=== PATIENT | female | born 1930 | race Caucasian/White ===

== ENCOUNTER → 2017-09-13 | Outpatient (CLI) | payer MEDICARE, BC ==
[~2017-09-13] MED LIST: AMMO12CR10 TOP; ASPI81CH CHEW; BIOTCAP PO; CALC500T37 PO; DIAZ10 PO; DIAZ5 PO; FOLI1 PO; FURO20 PO; IRBE1TAB37 PO; KCL20 PO; MULT-65 PO; OCUVTAB4 PO; OLME1TAB13 PO; PROT40TA PO; PURE0.3D2 OU; SYMB80AE INH; THIA100T PO; [UNRECOGNIZED DRUG - OTHER]
[2017-09-13 14:51] LABS: AUTOMATED NEUTROPHIL # 3.9 TH/MM3 (1.8-7.7); BASOPHIL # 0.2 TH/MM3 (0-0.2); BASOPHIL % 2.3 % (0.0-2.0); EOSINOPHIL # 0.6 TH/MM3 (0-0.4); EOSINOPHIL % 8.1 % (0.0-4.0); HEMATOCRIT 31.5 % (35.0-46.0); LYMPH % 26.8 % (9.0-44.0); LYMPHOCYTE # 1.9 TH/MM3 (1.0-4.8); MEAN CELL VOLUME 81.3 FL (80.0-100.0); MEAN CORPUSCULAR HEMOGLOBIN 25.8 PG (27.0-34.0); MEAN CORPUSCULAR HGB CONC 31.7 % (32.0-36.0); MONO % 6.4 % (0.0-8.0); NEUT % 56.4 % (16.0-70.0); PLATELET COUNT 170 TH/MM3 (150-450); RED BLOOD COUNT 3.88 MIL/MM3 (4.00-5.30); RED CELL DISTRIBUTION WIDTH 24.5 % (11.6-17.2)
[2017-09-13 14:54] LABS: HEMO FLAGS AUTO DIFF
[2017-09-13 14:58] LABS: APTT (PATIENT) 29.4 SEC (24.3-30.1); PROTHROMBIN TIME - PATIENT 11.1 SEC (9.8-11.6)
[2017-09-13 15:08] LABS: ALT (GPT) 15 U/L (10-53); ANION GAP 6 MEQ/L (5-15); AST (GOT) 22 U/L (15-37); BICARBONATE 30.5 MEQ/L (21.0-32.0); BLOOD UREA NITROGEN 15 MG/DL (7-18); CHLORIDE 100 MEQ/L (98-107); GLOMERULAR FILTRATION RATE 85 ML/MIN (>89); GLUCOSE,FASTING 95 MG/DL (74-99); POTASSIUM 4.3 MEQ/L (3.5-5.1); SODIUM (NA) 136 MEQ/L (136-145)
[2017-09-13 15:11] LABS: ALKALINE PHOSPHATASE 63 U/L (45-117); TOTAL BILIRUBIN ADULT 0.5 MG/DL (0.2-1.0)
[2017-09-13 15:24] LABS: SCAN/DIFF AUTO DIFF CONFIRMED
[2017-09-13 15:25] LABS: PLATELET ESTIMATE SMEAR NORMAL (NORMAL); PLATELET MORPHOLOGY NORMAL (NORMAL); TARGET CELLS 1+ (NORMAL)
[2017-09-13 15:28] LABS: TOXIC GRANULATION 1+ (NORMAL)
== END ==
LOC: CPRE 14:08
PROVIDERS: ATTEND Obstetrics & Gynecology Gynecologic Oncology
DX: Z01.810 Encounter for preprocedural cardiovascular examination (principal); Z01.811 Encounter for preprocedural respiratory examination; Z01.812 Encounter for preprocedural laboratory examination; C54.1 Malignant neoplasm of endometrium
CPT/HCPCS: 36415; 80053; 85025; 85610; 85730

== ENCOUNTER 2017-09-24 05:14 | Inpatient (IN) | payer MEDICARE, BC ==
[~2017-09-24] VITALS: Ht 162.6 cm; Wt 107.0 kg
[2017-09-24] VITALS (10 sets, daily range): BP systolic 130–144; BP diastolic 62–66; PULSE 80–97; RESP 19–27; TEMP 97.3–97.4; O2SAT 94–99
[~2017-09-24 05:14] MED LIST changes: -AMMO12CR10 TOP; -DIAZ10 PO; -DIAZ5 PO; -FOLI1 PO; -FURO20 PO; -IRBE1TAB37 PO; -KCL20 PO; -PROT40TA PO; -PURE0.3D2 OU; -SYMB80AE INH; -THIA100T PO; -[UNRECOGNIZED DRUG - OTHER]
[2017-09-24] MEDS ORDERED: POVIDONE IODINE 5% (ANTISEPSIS KIT) 4 APPLICATIONS EACH NARE PRN ×2 (05:45)
[2017-09-24] MEDS ORDERED: ceFAZolin 2 GM PREMIX 50 ML IV SCH ×2 (05:45)
[2017-09-24] MEDS ORDERED: METOPROLOL TARTRATE 25 MG TAB PO PRN ×2 (05:45)
[2017-09-24] MEDS ORDERED: INSULIN HUMAN REGULAR 1,000 UNITS/10 ML VIAL SQ PRN ×2 (05:45)
[2017-09-24] MEDS ORDERED: CHLORHEXIDINE GLUCONATE 2 % 1 PACK (2 CLOTHS) TOPICAL PRN ×2 (05:45)
[2017-09-24] MEDS ORDERED: HEPARIN SODIUM - SQ 10,000 UNITS/ML VIAL SQ PRN ×2 (05:45)
[2017-09-24] MEDS ORDERED: SODIUM CHLORID 0.9% 500 ML IV PRN ×2 (05:45)
[2017-09-24] MEDS ORDERED: LACTATED RINGER'S 1000 ML IV PRN ×2 (05:45)
[2017-09-24] MEDS ORDERED: SODIUM CHLORIDE FLUSH PRN IV FLUSH ×2 (05:45)
[2017-09-24] MEDS ORDERED: DIAZ10 PO ×2 (06:01)
[2017-09-24] MEDS ORDERED: SUGAMMADEX SODIUM 200 MG/2 ML VIAL IV PUSH ONE ×4 (06:45→15:10)
[2017-09-24] MEDS ORDERED: HYDROmorphone HCL PF 2 MG/ML VIAL ONE ×2 (06:45)
[2017-09-24] MEDS ORDERED: LIDOCAINE 1%/EPINEPHrine 1:100,000 SOLN 20 ML VIAL ONE ×2 (07:31)
[2017-09-24] MEDS ORDERED: methylPREDNISolone SOD SUCC 125 MG/2 ML VIAL ONE ×2 (07:37)
[2017-09-24] MEDS: SODIUM CHLORIDE FLUSH BID IV FLUSH SCH ×4 (09:00→21:00)
[2017-09-24] MEDS ORDERED: ACETAMINOPHEN 1000 MG/100 ML 100 ML IV ONE ×2 (10:01)
[2017-09-24] MEDS ORDERED: ceFAZolin INJ 1,000 MG VIAL IV ONE ×2 (11:11)
[2017-09-24] MEDS ORDERED: diphenhydrAMINE HCL 25 MG CAP PO PRN ×2 (12:00)
[2017-09-24] MEDS ORDERED: SODIUM CHLORIDE 0.9% FLUSH 10 ML FLUSH IV FLUSH PRN ×4 (12:00)
[2017-09-24] MEDS ORDERED: ONDANSETRON HCL 4 MG/2 ML VIAL IVP PRN ×2 (12:00)
[2017-09-24] MEDS ORDERED: oxyCODONE/ACETAMINOPHEN 5 MG/325 MG TAB PO PRN ×4 (12:00)
[2017-09-24] MEDS: D5-1/2 NS + KCL 20 MEQ INJ 1,000 ML IV SCH ×4 (12:30→22:09)
[2017-09-24] MEDS ORDERED: *RESP: ALBUTEROL 2.5 MG/3 ML NEB (PRN) PERIprocedural Use ONLY NEB ONE ×2 (15:45)
--- NOTE | 2017-09-24 17:09 | RADRPT ---
EXAM DATE/TIME: 09/24/2017 16:50 [facility] COMPARISON: No previous studies available for comparison. INDICATIONS : Short of breath. MEDICAL HISTORY : None. SURGICAL HISTORY : None. ENCOUNTER: Initial ACUITY: 1 day PAIN SCORE: 0/10 LOCATION: Bilateral chest FINDINGS: The heart is enlarged. Moderate interstitial changes are present in both lungs. Congestive failure would be consideration. Premature process to be less likely. There is no pneumothorax or pleural ef fusion. CONCLUSION: Probable congestive failure. Miky Newsome MD FACR on September 24, 2017 at 17:07 Board Certified Radiologist. This report was verified electronically.
[2017-09-24] MEDS ORDERED: methylPREDNISolone SOD SUCC 125 MG/2 ML VIAL IV PUSH ONE ×2 (17:30)
--- NOTE | 2017-09-24 17:30 | PD.CONS ---
[facility] Service Critical Care Medicine Consult Requested By Dr. 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 Posadas on 09/24, tolerated procedure well was subsequently extubated however has been having borderline O2 sats following extubation in PACU. She was placed on a Ventimask 50% O2 with which her O2 sats borderline around 88%. Critical care consult was requested by Dr. Posadas for acute respiratory failure. Subsequently patient dropped O2 sats to the 70s and was placed on BiPAP in PACU. ABG had been drawn just prior to initiating BiPAP. I evaluated the patient in PACU while she was on BiPAP. Her O2 sats had improved to 97% on settings +10/+5 and FiO2 40%. Patient appeared comfortable on BiPAP and was not in any acute distress. She knew she was in [facility] and was following commands appropriately. She denied any chest pain or nausea. She denied any pain. Review of Systems ROS Limitations: Clinical Condition Past Family Social History Allergies: Coded Allergies: betamethasone (Unverified Allergy, Unknown, UNKNOWN REACTION, 09/24/17) Uncoded Allergies: LANOLIN (Allergy, Unknown, BLOTCHES, 11/10/03) Past Medical History Vaginal Bleeding Chronic Obstructive Pulmonary Disease (O2 usage around the clock) Hemorrhoids Hypertension Cancer in 2017 Past Surgical History PAST SURGICAL HISTORY: Tubal ligation Breast implant in 1993 Reported Medications Aspirin 81 mg (of 81 mg) Tablet Oral (held 2 weeks prior to surgery) Benicar Tablet Oral Calcium Tablet Oral Multi Vitamin Tablet Oral Family History The family history is unremarkable. Social History Ms. Strickland is . Ms. Strickland quit smoking 33 years ago. She quit drinking 3 years ago. History of EtOH abuse. Physical Exam Vital Signs Vital Signs Date Time Temp Pulse Resp B/P (MAP) Pulse Ox O2 Delivery O2 Flow Rate FiO2 09/24/17 05:55 97.2 94 18 109/54 (72) 96 Physical Exam HEENT/Neuro: Pallor present, No icterus, tongue moist, JANELL, Awake alert oriented 3, on BiPAP with full facemask nonfocal grossly, moving all 4 extremities Neck: No JVD Chest/pulmonary: On BiPAP with full facemask, air entry decreased bilaterally at bases, no wheezing or crackles. Occasional rhonchi Cardiovascular: S1-S2 regular no gallop or murmur GI/abdomen: Soft, nontender, bowel sounds sluggish. Steri-Strips noted over lap port sites 3 Extremities: Warm bilaterally, trace edema Laboratory Postop labs pending. Imaging Well-expanded lung mendez, prominent pulmonary vasculature. Assessment and Plan Assessment and Plan 86-year-old female with: Endometrial cancer status post robot-assisted laparoscopic hysterectomy and bilateral salpingo-oophorectomy Acute respiratory failure requiring BiPAP Suspect COPD exacerbation Advanced COPD on home oxygen Morbid obesity Plan: Neuro: Pain medications as ordered per Dr. Posadas Cardiovascular: IV hydration, watch for hypotension. Check BNP, if elevated will obtain 2-D echo in a.m. Pulmonary: Started Solu-Medrol 125 mg IV stat and then 80 mg IV every 12 hourly. Duo nebs every 4 hourly and every 2 hourly when necessary. Continue BiPAP. If respiratory status worsens despite BiPAP, may require endotracheal intubation. Follow up ABG GI/liver: Nothing by mouth to rest I status improves. Advance PO when resp status permits per postop orders by Dr. Posadas. Renal/: Strict intake output, monitor and replete elect lites, follow BUN creatinine. IV hydration. Endocrine: Watch for hyperglycemia, SSI for glycemic control as needed. Heme: Follow CBC. Transfuse to keep hemoglobin above 8 g percent. ID: Perioperative antibiotic prophylaxis per Dr. Posadas. Prophylaxis: SCDs. Subcutaneous heparin when cleared by Dr. Posadas Condition critical. Respiratory failure requiring BiPAP postoperatively for advanced COPD. Time spent on critical care excluding procedures 60 minutes Mina Waller MD Sep 24, 2017 17:30
[2017-09-24] MEDS ORDERED: RESP: ALBUTEROL 2.5 MG/IPRATROPIUM 0.5 MG NEB (PRN) NEB ×2 (17:45)
[2017-09-24 18:00] LABS: AUTOMATED NEUTROPHIL # 10.3 TH/MM3 (1.8-7.7); BASOPHIL % 0.2 % (0.0-2.0); HEMATOCRIT 28.5 % (35.0-46.0); LYMPH % 5.2 % (9.0-44.0); LYMPHOCYTE # 0.6 TH/MM3 (1.0-4.8); MEAN CELL VOLUME 82.1 FL (80.0-100.0); MEAN CORPUSCULAR HEMOGLOBIN 25.9 PG (27.0-34.0); MEAN CORPUSCULAR HGB CONC 31.5 % (32.0-36.0); MEAN PLATELET VOLUME 8.9 FL (7.0-11.0); MONO % 1.5 % (0.0-8.0); MONOCYTE # 0.2 TH/MM3 (0-0.9); NEUT % 93.1 % (16.0-70.0); PLATELET COUNT 150 TH/MM3 (150-450); RED BLOOD COUNT 3.48 MIL/MM3 (4.00-5.30); RED CELL DISTRIBUTION WIDTH 24.6 % (11.6-17.2); WHITE BLOOD COUNT 11.1 TH/MM3 (4.0-11.0)
[2017-09-24 18:24] LABS: ALBUMIN 2.9 GM/DL (3.4-5.0); AST (GOT) 21 U/L (15-37); BICARBONATE 26.7 MEQ/L (21.0-32.0); BLOOD UREA NITROGEN 17 MG/DL (7-18); CALCIUM 8.1 MG/DL (8.5-10.1); CHLORIDE 102 MEQ/L (98-107); CREATININE 0.92 MG/DL (0.50-1.00); GLOMERULAR FILTRATION RATE 58 ML/MIN (>89); GLUCOSE,RANDOM 216 MG/DL (74-106); SODIUM (NA) 136 MEQ/L (136-145)
[2017-09-24 18:25] LABS: ALT (GPT) 14 U/L (10-53)
[2017-09-24 18:27] LABS: ALKALINE PHOSPHATASE 51 U/L (45-117); TOTAL BILIRUBIN ADULT 0.2 MG/DL (0.2-1.0); TOTAL PROTEIN 6.5 GM/DL (6.4-8.2)
[2017-09-24] MEDS: KETOROLAC TROMETHAMINE 30 MG/ML (IVP) VIAL IVP SCH ×2 (19:58)
[2017-09-24] MEDS: RESP: ALBUTEROL 2.5 MG/IPRATROPIUM 0.5 MG NEB (SCH) NEB ×2 (20:00)
[2017-09-24] MEDS ORDERED: SODIUM CHLORIDE 0.9% FLUSH 10 ML FLUSH IV FLUSH SCH ×4 (21:00)
[2017-09-24] MEDS: methylPREDNISolone SOD SUCC 125 MG/2 ML VIAL IV PUSH SCH ×2 (22:09)
[2017-09-25] VITALS (15 sets, daily range): BP systolic 93–121; BP diastolic 44–79; PULSE 78–115; RESP 13–33; TEMP 97–98.4; O2SAT 89–98
[2017-09-25] MEDS: RESP: ALBUTEROL 2.5 MG/IPRATROPIUM 0.5 MG NEB (SCH) NEB ×12 (00:12→20:17)
[2017-09-25] MEDS: KETOROLAC TROMETHAMINE 30 MG/ML (IVP) VIAL IVP SCH ×4 (00:20→08:46)
[2017-09-25 04:26] LABS: AUTOMATED NEUTROPHIL # 11.2 TH/MM3 (1.8-7.7); BASOPHIL % 0.1 % (0.0-2.0); HEMATOCRIT 26.8 % (35.0-46.0); HEMOGLOBIN 8.4 GM/DL (11.6-15.3); LYMPH % 5.1 % (9.0-44.0); LYMPHOCYTE # 0.6 TH/MM3 (1.0-4.8); MEAN CELL VOLUME 81.3 FL (80.0-100.0); MEAN CORPUSCULAR HEMOGLOBIN 25.3 PG (27.0-34.0); MEAN CORPUSCULAR HGB CONC 31.2 % (32.0-36.0); MEAN PLATELET VOLUME 8.5 FL (7.0-11.0); MONO % 1.1 % (0.0-8.0); MONOCYTE # 0.1 TH/MM3 (0-0.9); NEUT % 93.7 % (16.0-70.0); PLATELET COUNT 134 TH/MM3 (150-450); RED CELL DISTRIBUTION WIDTH 25.3 % (11.6-17.2); WHITE BLOOD COUNT 11.9 TH/MM3 (4.0-11.0)
[2017-09-25 04:50] LABS: BICARBONATE 26.5 MEQ/L (21.0-32.0); CALCIUM 7.9 MG/DL (8.5-10.1); CREATININE 0.89 MG/DL (0.50-1.00)
[2017-09-25 07:07] LABS: BANDS 13 % (0-6); LYMPHOCYTES 3 % (9-44); MONOCYTES 3 % (0-8); NEUTROPHIL # MANUAL DIFF 11.2 TH/MM3 (1.8-7.7); POLYS (SEG NEUTROPHILS) 81 % (16-70); TOXIC GRANULATION 1+ (NORMAL)
[2017-09-25] MEDS: D5-1/2 NS + KCL 20 MEQ INJ 1,000 ML IV SCH ×4 (08:46→17:41)
[2017-09-25] MEDS: SODIUM CHLORIDE FLUSH BID IV FLUSH SCH ×4 (08:46→20:31)
[2017-09-25] MEDS: LOSARTAN 50 MG TAB PO SCH ×2 (08:47)
[2017-09-25] MEDS: methylPREDNISolone SOD SUCC 125 MG/2 ML VIAL IV PUSH SCH ×2 (08:47)
--- NOTE | 2017-09-25 09:10 | RADRPT ---
EXAM DATE/TIME: 09/25/2017 08:24 [place] Corrected on: September 25, 2017; Updated report time [facility] COMPARISON: CHEST SINGLE AP, September 24, 2017, 16:50. INDICATIONS : Shortness of breath. MEDICAL HISTORY : None. SURGICAL HISTORY : None. ENCOUNTER: Subsequent ACUITY: 2 days PAIN SCORE: 0/10 LOCATION: Bilateral chest FINDINGS: Stable cardiomegaly. There is some indistinctness of the central bronchopulmonary markings, slightly improved from yesterday's scan. There is persistent blunting of both costophrenic angles are acoust ical small bilateral pleural effusions. CONCLUSION: Congestive heart failure slightly improved. Persistent small bilateral pleural effusions. Jim Horta MD on September 25, 2017 at 9:08 Board Certified Radiologist. This report was verified electronically.
--- NOTE | 2017-09-25 09:13 | HHI.PR ---
Subjective . no c/o this morning. reports no pain Objective . afeb no on nc oxygen 5l/min with sats > 92 hgb 8.4 (10 pre-op) renal function good, but uop ~ 25ml/hr A& O x3 NAD abdomen soft, nt, clean & dry Assessment/Plan . pos#1 some improvement in oxygenation, overall status most grateful for excellent ISC care oob to chair, spirometry PT consult Case management consult Continue ISC care for another 24 hours Liane Posadas MD Sep 25, 2017 09:13
--- NOTE | 2017-09-25 09:48 | HHI.CCPN ---
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 Posadsa on 09/24, tolerated procedure well was subsequently extubated however has been having borderline O2 sats following extubation in PACU. She was placed on a Ventimask 50% O2 with which her O2 sats borderline around 88%. Critical care consult was requested by Dr. Posadas for acute respiratory failure. Subsequently patient dropped O2 sats to the 70s and was placed on BiPAP in PACU. ABG had been drawn just prior to initiating BiPAP. I evaluated the patient in PACU while she was on BiPAP. Her O2 sats had improved to 97% on settings +10/+5 and FiO2 40%. Patient appeared comfortable on BiPAP and was not in any acute distress. She knew she was in [facility] and was following commands appropriately. She denied any chest pain or nausea. She denied any pain. 09/25: Breathing more comfortably today. On 5 L nasal cannula. Off BiPAP since 9 PM. Awake alert oriented 3. Denies any pain. Minimal vagina bleeding per shift production associate RN. Objective Vital Signs Date Time Temp Pulse Resp B/P (MAP) Pulse Ox O2 Delivery O2 Flow Rate FiO2 09/25/17 08:00 98.1 93 21 107/47 (67) 93 09/25/17 07:57 Nasal Cannula 5.00 09/24/17 20:01 40 Intake and Output 09/25/17 09/25/17 09/26/17 08:00 16:00 00:00 Intake Total 50 ml Output Total 200 ml Balance -150 ml Result Diagram: 09/25/17 0414 09/25/17 0414 Other Results Laboratory Tests Test 09/24/17 17:10 Blood Gas Puncture Site ART LINE Blood Gas Patient Temperature 98.6 Blood Gas HCO3 25 mmol/L (22-26) Blood Gas Base Excess -0.3 mmol/L (-2-2) Blood Gas Oxygen Saturation 96 % (90-100) Arterial Blood pH 7.31 (7.380-7.420) Arterial Blood Partial Pressure CO2 51 mmHg (38-42) Arterial Blood Partial Pressure O2 119 mmHg (61-120) Arterial Blood Oxygen Content 12.5 Vol % (12.0-20.0) Arterial Blood Carboxyhemoglobin 1.4 % (0-4) Arterial Blood Methemoglobin 1.1 % (0-2) Blood Gas Hemoglobin 9.2 G/DL (12.0-16.0) Oxygen Delivery Device Non-Rebreathing Mask Blood Gas Liter Flow 15 L/M Imaging Well-expanded lung mendez, prominent pulmonary vasculature. Objective Remarks HEENT/Neuro: Pallor present, No icterus, tongue moist, JANELL, Awake alert oriented 3, nonfocal grossly, moving all 4 extremities Neck: No JVD Chest/pulmonary: On nasal cannula 5 L/m, air entry decreased bilaterally at bases, no wheezing or crackles. Occasional rhonchi Cardiovascular: S1-S2 regular no gallop or murmur GI/abdomen: Soft, nontender, bowel sounds sluggish. Steri-Strips noted over lap port sites 3 Extremities: Warm bilaterally, trace edema A/P Assessment and Plan 86-year-old female with: Endometrial cancer status post robot-assisted laparoscopic hysterectomy and bilateral salpingo-oophorectomy Acute respiratory failure requiring BiPAP Suspect COPD exacerbation Advanced COPD on home oxygen Morbid obesity Plan: Neuro: Pain medications as ordered per Dr. Posadas. Follow neuro status Cardiovascular: IV hydration, watch for hypotension. Elevated BNP noted, ordered 2-D echo to assess LV/RV function. Lasix 20 mg IV 1 dose in view of question of pulmonary vascular congestion with bilateral effusions on chest x- ray Pulmonary: Started Solu-Medrol 125 mg IV in PACU and then 80 mg IV every 12 hourly. Duo nebs every 4 hourly and every 2 hourly when necessary. Off BiPAP on nasal cannula currently. GI/liver: Advance PO per postop orders by Dr. Posadas. Renal/: Strict intake output, monitor and replete electrolites, follow BUN creatinine. Receiving IV fluids. Lasix 20 mg IV 1 dose ordered in view of elevated BNP Endocrine: Watch for hyperglycemia, SSI for glycemic control as needed. Heme: Follow CBC. Transfuse to keep hemoglobin above 8 g percent. ID: Perioperative antibiotic prophylaxis per Dr. Posadas. Prophylaxis: SCDs. Subcutaneous heparin when cleared by Mina Oliveira MD Sep 25, 2017 09:47
[2017-09-25] MEDS ORDERED: FUROSEMIDE 20 MG/2 ML VIAL IV PUSH ONE ×2 (10:15)
--- NOTE | 2017-09-25 16:00 | ECHRPT ---
Indication: ASSESS LV/RV FUNCTION CONCLUSIONS Normal left ventricular size. Wall thickness is normal. The left ventricular systolic function is hyperdynamic with an estimated ejection fraction in the ra nge of 65- 70%. Mitral annular calcification is present. There is mild tricuspid valve regurgitation. The estimated pulmonary arterial pressure is 45.3 mmHg. BP: 107 / 47 HR: Rhythm: Sinus MEASUREMENTS (Male / Female) Normal Values Technical Quality:Fair 2D ECHO LV Diastolic Diameter PLAX 5.4 cm 4.2 - 5.9 / 3.9 - 5.3 cm LV Systolic Diameter PLAX 3.8 cm IVS Diastolic Thickness 0.7 cm 0.6 - 1.0 / 0.6 - 0.9 cm LVPW Diastolic Thickness 0.8 cm 0.6 - 1.0 / 0.6 - 0.9 cm LV Relative Wall Thickness 0.3 LVOT Diameter 1.9 cm Aortic Root Diameter 2.3 cm LA Systolic Diameter LX 3.8 cm 3.0 - 4.0 / 2.7 - 3.8 cm M-MODE AV Cusp Separation MM 2.1 cm DOPPLER AV Peak Velocity 176.0 cm/s AV Peak Gradient 12.4 mmHg AV Mean Gradient 7.0 mmHg AV Velocity Time Integral 28.8 cm LVOT Peak Velocity 104.0 cm/s LVOT Peak Gradient 4.3 mmHg LVOT Velocity Time Integral 19.5 cm AV Area Cont Eq vti 1.9 cm AV Area Cont Eq pk 1.7 cm Mitral E Point Velocity 95.8 cm/s Mitral A Point Velocity 121.0 cm/s Mitral E to A Ratio 0.8 LV E' Lateral Velocity 9.1 cm/s Mitral E to LV E' Lateral Ratio 10.6 LV E' Septal Velocity 9.4 cm/s Mitral E to LV E' Septal Ratio 10.2 TR Peak Velocity 297.0 cm/s TR Peak Gradient 35.3 mmHg Right Atrial Pressure 10.0 mmHg Pulmonary Artery Systolic Pressu 45.3 mmHg Right Ventricular Systolic Press 45.3 mmHg PV Peak Velocity 64.7 cm/s PV Peak Gradient 1.7 mmHg FINDINGS LEFT VENTRICLE Normal left ventricular size. Wall thickness is normal. The left ventricular systolic function is hyperdynamic with an estimated ejection fraction in the ra nge of 65- 70%. RIGHT VENTRICLE Normal right ventricular size and systolic function. LEFT ATRIUM The left atrial size is normal. RIGHT ATRIUM The right atrial size is normal. ATRIAL SEPTUM Normal atrial septal thickness without atrial level shunting by limited color doppler interrogation. AORTA The aortic root and proximal ascending aorta are normal in size on limited imaging. MITRAL VALVE Mitral annular calcification is present. AORTIC VALVE Trileaflet aortic valve. No aortic valve stenosis or regurgitation. TRICUSPID VALVE There is mild tricuspid valve regurgitation. The estimated pulmonary arterial pressure is 45.3 mmHg. PULMONARY VALVE No pulmonary valve regurgitation or stenosis. VESSELS The inferior vena cava is normal in size. PERICARDIUM No pericardial effusion. Idalmis Waddell MD, FACC (Electronically Signed) Final Date:25 September 2017 15:59
[2017-09-25] MEDS: methylPREDNISolone SOD SUCC 40 MG/1 ML VIAL IV PUSH SCH ×2 (20:30)
[2017-09-26] VITALS (12 sets, daily range): BP systolic 129–148; BP diastolic 47–72; PULSE 91–114; RESP 10–39; TEMP 97.7–99.2; O2SAT 88–99
[2017-09-26] MEDS: RESP: ALBUTEROL 2.5 MG/IPRATROPIUM 0.5 MG NEB (SCH) NEB ×14 (01:05→23:28)
[2017-09-26] MEDS: D5-1/2 NS + KCL 20 MEQ INJ 1,000 ML IV SCH ×2 (04:01)
[2017-09-26 05:23] LABS: AUTOMATED NEUTROPHIL # 12.5 TH/MM3 (1.8-7.7); BASOPHIL % 0.2 % (0.0-2.0); LYMPH % 3.9 % (9.0-44.0); LYMPHOCYTE # 0.5 TH/MM3 (1.0-4.8); MEAN CELL VOLUME 81.9 FL (80.0-100.0); MEAN CORPUSCULAR HEMOGLOBIN 26.1 PG (27.0-34.0); MEAN CORPUSCULAR HGB CONC 31.8 % (32.0-36.0); MEAN PLATELET VOLUME 9.1 FL (7.0-11.0); MONO % 2.4 % (0.0-8.0); MONOCYTE # 0.3 TH/MM3 (0-0.9); NEUT % 93.5 % (16.0-70.0); PLATELET COUNT 118 TH/MM3 (150-450); RED BLOOD COUNT 3.05 MIL/MM3 (4.00-5.30); WHITE BLOOD COUNT 13.3 TH/MM3 (4.0-11.0)
[2017-09-26 06:01] LABS: BICARBONATE 25.9 MEQ/L (21.0-32.0); CALCIUM 7.7 MG/DL (8.5-10.1); CREATININE 0.74 MG/DL (0.50-1.00)
[2017-09-26 06:48] LABS: BANDS 8 % (0-6); CORRECTED NUCLEATED RBC 1 /100 WBC (0-0); LYMPHOCYTES 2 % (9-44); MYELOCYTES 1 % (0-0); NUCLEATED RED BLOOD CELL 1 (0-0); POLYS (SEG NEUTROPHILS) 89 % (16-70)
[2017-09-26] MEDS ORDERED: FUROSEMIDE 20 MG/2 ML VIAL IV PUSH ONE ×2 (08:00)
[2017-09-26] MEDS: methylPREDNISolone SOD SUCC 40 MG/1 ML VIAL IV PUSH SCH ×4 (08:02→21:19)
[2017-09-26] MEDS: SODIUM CHLORIDE FLUSH BID IV FLUSH SCH ×4 (08:03→21:00)
[2017-09-26] MEDS: LOSARTAN 50 MG TAB PO SCH ×2 (08:03)
[2017-09-26 08:33] LABS: BILIRUBIN, URINE NEG (NEG); BLOOD, URINE NEG (NEG); GLUCOSE,URINE NEG (NEG); KETONE, URINE NEG (NEG); MUCUS URINE FEW /lpf (OCC); NITRITE,URINE NEG (NEG); PH, URINE 5.5 (5.0-8.5); URINE COLOR COLORLESS (YELLW/STRAW); URINE LEUKOCYTE ESTERASE NEG (NEG)
--- NOTE | 2017-09-26 08:37 | PD.ONC.PN ---
Subjective Subjective Remarks patient resting in bed with Venturi mask at 5 liters stats low 90s changed to 5L NC and sats dropped to 84% she was placed back on Venturi Mask at 5 liters OOB to chair yesterday. patient denies any pain small amount of dark blood on radha pad Objective Data Date Time Temp Pulse Resp B/P (MAP) Pulse Ox O2 Delivery O2 Flow Rate FiO2 09/26/17 06:00 114 09/26/17 04:00 97.7 104 24 132/58 (82) 92 09/26/17 04:00 104 09/26/17 02:55 91 Venturi Mask 6.00 50 09/26/17 02:55 91 Venturi Mask 6.00 50 09/26/17 02:00 108 09/26/17 00:00 98.0 104 25 90 142/57 (85) 09/26/17 00:00 104 09/25/17 22:00 114 09/25/17 20:18 92 Nasal Cannula 5.00 09/25/17 20:00 109 09/25/17 20:00 98.0 109 30 93/79 (84) 92 09/25/17 19:00 92 Nasal Cannula 5.00 09/25/17 18:00 109 09/25/17 16:00 115 09/25/17 16:00 97.8 96 18 121/56 (77) 96 09/25/17 14:00 109 09/25/17 12:00 97.8 102 25 105/45 (65) 89 09/25/17 12:00 102 09/25/17 10:00 105 09/26/17 09/26/17 09/26/17 07:00 15:00 23:00 Intake Total 1240 ml Output Total 1000 ml Balance 240 ml Result Diagram: 09/26/17 0324 09/26/17 0324 Laboratory Results Laboratory Tests Test 09/25/17 14:24 09/26/17 03:24 Blood Gas Puncture Site ART LINE Blood Gas Patient Temperature 98.6 Blood Gas HCO3 21 mmol/L Blood Gas Base Excess -4.0 mmol/L Blood Gas Oxygen Saturation 90 % Arterial Blood pH 7.33 Arterial Blood Partial Pressure CO2 41 mmHg Arterial Blood Partial Pressure O2 68 mmHg Arterial Blood Oxygen Content 10.1 Vol % Arterial Blood Carboxyhemoglobin 1.6 % Arterial Blood Methemoglobin 1.0 % Blood Gas Hemoglobin 7.9 G/DL Oxygen Delivery Device NASAL CANNULA Blood Gas Liter Flow 5 L/M White Blood Count 13.3 TH/MM3 Red Blood Count 3.05 MIL/MM3 Hemoglobin 8.0 GM/DL Hematocrit 25.0 % Mean Corpuscular Volume 81.9 FL Mean Corpuscular Hemoglobin 26.1 PG Mean Corpuscular Hemoglobin Concent 31.8 % Red Cell Distribution Width 26.0 % Platelet Count 118 TH/MM3 Mean Platelet Volume 9.1 FL Neutrophils (%) (Auto) 93.5 % Lymphocytes (%) (Auto) 3.9 % Monocytes (%) (Auto) 2.4 % Eosinophils (%) (Auto) 0.0 % Basophils (%) (Auto) 0.2 % Neutrophils # (Auto) 12.5 TH/MM3 Lymphocytes # (Auto) 0.5 TH/MM3 Monocytes # (Auto) 0.3 TH/MM3 Eosinophils # (Auto) 0.0 TH/MM3 Basophils # (Auto) 0.0 TH/MM3 CBC Comment AUTO DIFF Differential Total Cells Counted 100 Neutrophils % (Manual) 89 % Band Neutrophils % 8 % Lymphocytes % 2 % Neutrophils # (Manual) 13.0 TH/MM3 Myelocytes 1 % Nucleated Red Blood Cells 1 /100 WBC Differential Comment FINAL DIFF MANUAL Platelet Estimate LOW Platelet Morphology Comment NORMAL Blood Urea Nitrogen 17 MG/DL Creatinine 0.74 MG/DL Random Glucose 155 MG/DL Calcium Level 7.7 MG/DL Sodium Level 135 MEQ/L Potassium Level 5.1 MEQ/L Chloride Level 101 MEQ/L Carbon Dioxide Level 25.9 MEQ/L Anion Gap 8 MEQ/L Estimat Glomerular Filtration Rate 75 ML/MIN Imaging Studies Last 24 hours Impressions Chest X-Ray 09/25/17 0812 Signed Impressions: Service Date/Time: Monday, September 25, 2017 08:24 - CONCLUSION: Congestive heart failure slightly improved. Persistent small bilateral pleural effusions. Jim Horta MD Administered Medications Medications (Trade) Dose Ordered Sig/Keenan Route PRN Reason Start Time Stop Time Status Last Admin Dose Admin Povidone Iodine (Betadine 5% Antisepsis Kit) 1 applic [employer] PRN EACH NARE SEE LABEL COMMENTS 09/24/17 05:45 09/27/17 05:44 09/24/17 05:55 Chlorhexidine Gluconate (Chlorhexidine 2% Cloth) 3 pack [employer] PRN TOPICAL SEE LABEL COMMENTS 09/24/17 05:45 09/27/17 05:44 09/24/17 05:25 Sodium Chloride (NS Flush) 2 ml BID IV FLUSH 09/24/17 09:00 09/26/17 08:03 Losartan Potassium (Cozaar) 100 mg DAILY PO 09/25/17 09:00 09/26/17 08:03 Albuterol/ Ipratropium (Duoneb Neb) 1 ampule Q4HR NEB NEB 09/24/17 20:00 09/26/17 03:27 Methylprednisolone Sodium Succinate (SoluMEDROL INJ) 40 mg Q12HR IV PUSH 09/25/17 21:00 09/26/17 08:02 Objective Remarks GENERAL: Well-nourished, well-developed patient. SKIN: Warm and dry. HEAD: Normocephalic. EYES: No scleral icterus. No injection or drainage. CARDIOVASCULAR: tachycardia without murmurs. RESPIRATORY: Breath sounds equal bilaterally. tachypneic. decreased in bilat bases GASTROINTESTINAL: Abdomen soft, non-tender, nondistended. with SS c/d/i MUSCULOSKELETAL: Adequate muscle tone. NEUROLOGICAL: No obvious focal deficit. Awake, alert, and oriented x3. PSYCHIATRIC: Appropriate mood and affect; insight and judgment normal. Assessment/Plan Problem List: (1) Post-operative state ICD Codes: Z98.890 - Other specified postprocedural states Status: Acute Plan: s/p RA lap hyst with BSO pain controlled minimal vaginal bleeding pathology is pending (2) COPD (chronic obstructive pulmonary disease) ICD Codes: J44.9 - COPD (chronic obstructive pulmonary disease) Status: Chronic Plan: Vascular Physician management we appreciate care and assistance pulmonology consulted for COPD and respiratory failure Lasix and prednisone nebs scheduled and PRN currently on venturi face mask CXR with little improvement Attending Statement Discussed with DR. Posadas and he is in agreement with plan of care. Problem Qualifiers (1) COPD (chronic obstructive pulmonary disease): Qualified Codes: J44.1 - Chronic obstructive pulmonary disease with (acute) exacerbation Eron Suh Sep 26, 2017 08:37
--- NOTE | 2017-09-26 14:14 | MP ---
cc: CLAUDIA BILLY,KAYLEY MOLINA MD, M.D. DATE OF SURGERY: 09/24/2017 PREOPERATIVE DIAGNOSIS 1. Uterine papillary serous carcinoma. 2. Enlarged uterus. POSTOPERATIVE DIAGNOSIS 1. Uterine papillary serous carcinoma. 2. Enlarged uterus. 3. Intraperitoneal adhesions. PROCEDURE Robotic-assisted laparoscopic hysterectomy, bilateral salpingo-oophorectomy, extensive lysis of adhesions. SURGEON Liane Posadas. 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 ANESTHESIA General endotracheal. ESTIMATED BLOOD LOSS 500 cc. IV FLUIDS 2000 cc. URINE OUTPUT 150 cc. HISTORY An 86-year-old female with postmenopausal bleeding, enlarged uterus on imaging. Biopsy of the endometrium showed uterine papillary serous carcinoma. She has been counseled regarding options and wanted definitive surgery. She and her family have been counseled extensively about risks, especially given her potential oxygen dependence, 86 years of age, sedentary lifestyle, above ideal body weight, and other potential risk factors. She is seen again in the pre-op holding area. Her family are present. We again discussed the plan, focusing on removing the source of tumor with a complete hysterectomy without spending additional time staging to look for microscopic metastatic disease but to biopsy anything that appears obvious. Pre-op imaging does not show any overt evidence of metastatic disease and this seems a reasonable balance of benefit and morbidity. Questions were asked and answered. They expressed good understanding and agreed. FINDINGS The uterus was approximately 14 cm, symmetrically enlarged. The tubes and ovaries grossly appeared normal. There was some increased vasculature in the uterine and parametrial areas. The omentum was adherent to the anterior abdominal wall and stuck distally in the pelvis. The colon was adherent to the left pelvic sidewall. The posterior cul-de-sac was obliterated with adhesions and the bladder was densely adherent to the fundus of the uterus. There was no overt evidence of disease beyond the uterus. There were no peritoneal implants. The liver and diaphragm edges were smooth. The omentum grossly appeared normal despite the adhesions. There were no appreciably enlarged retroperitoneal lymph nodes in the pelvis or the paraaortic region. On exam under anesthesia the cervix was dilated and there was tumor visible and extruding through the cervical os. There were blood clots as well as some active bleeding from the tumor even at the start of the exam. The uterus once removed showed a large tumor, approximately 5 cm, and it invaded into the myometrium at least skilled nursing, possibly deeper. There was no overt extension into the cervix. There was cervical stroma on gross exam but the tumor did extend down into the canal of the cervix at least. MODIFIER/STATEMENT OF COMPLEXITY The complexly of this case with increased for several reasons. First her BMI was 41.7. Secondly she had extensive intraperitoneal adhesions. Thirdly her uterus was enlarged which created technical challenges for specimen delivery relative to pelvic outlet. Modifier should be applied accordingly. DETAILS OF PROCEDURE She was taken to the operating room and placed in the dorsal lithotomy position. After general endotracheal anesthesia was administered a timeout was undertaken. She was identified by sight recognition and hospital ID bracelet and the proposed procedure was reviewed and confirmed. She was carefully positioned in padded Marcelo stirrups. Her arms were padded and secured to the sides. She was further secured to the operating table with eggcrate padding and tape in across chest over the shoulder fashion. All sites were noted to be properly aligned with no malalignments or pressure points. She was prepped and draped in sterile fashion, placed in high lithotomy position. Exam was performed with a narrow pelvic outlet. Redundant mucosa of the cervix was grasped but there was tumor visible as described above extruding through a dilated cervical os. The uterine cavity was sounded and a small VCare manipulator was inserted and secured in the usual fashion. A Nguyen catheter was placed in the bladder. She was returned to low lithotomy position. A change of sterile gloves was undertaken. We confirmed that an orogastric tube was in the stomach on suction. With manual elevation of the abdominal wall and direct laparoscopic visualization a 5 mm cannula was introduced into the left upper quadrant and an atraumatic entry was confirmed. Carbon dioxide gas was insufflated into the peritoneal cavity. A 12 mm cannula was placed in the midline above the umbilicus and blunt and sharp dissection were used to take the omentum off the abdominal wall to clear access for an 8 mm cannula in the right upper quadrant and left lateral quadrant. The original 5 was exchanged for an 8 mm cannula. Additional blunt and sharp dissection were used to free the omentum further to help mobilize the bowel. She was placed in steep Trendelenburg position. Peritoneal washings were obtained for cytology. The anatomy was explored with findings as described above. The small bowel was folded back on its mesenteric root to the extent possible and three Ray-Ingrid sponges were placed around the root of the small bowel mesentery. The robotic system was brought into the operative field and attached in the usual fashion. Monopolar scissors, fenestrated bipolar forceps and ProGrasp manipulators were placed in arms #1, 2 and 3 respectively, and I took my place at the surgeon's console. Additional lysis of adhesions was carried out to mobilize the colon, free it from the left pelvic sidewall, free adhesions from the posterior cul-de-sac to mobilize the right ovary which was adherent to the right pelvic sidewall and to initiate dissection of the bladder flap by taking down the adhesions from the uterine fundus. The right round ligament was isolated, cauterized and transected. The anterior and posterior leafs of the broad ligament were opened. The right ureter was identified. The right infundibulopelvic ligament was isolated. The intervening peritoneum was opened. The infundibulopelvic ligament was isolated to the level of the pelvic brim, cauterized and transected. The posterior peritoneum was opened along the right side of the uterus and cervix and the right vesicouterine peritoneum was dissected off the lower uterine segment and cervix and additional dissection was required to mobilize the bladder flap from its adhesions. The right uterine vessels were skeletonized. Attention was directed toward the left side. The left round ligament was isolated, cauterized and transected. The anterior and posterior leafs of the broad ligament were opened. Additional lysis of adhesions was carried out to mobilize the colon, to free adhesions and to isolate the left pelvic sidewall structures. The left ureter was identified. The left infundibulopelvic ligament was isolated. The intervening peritoneum was opened. The infundibulopelvic ligament was isolated to the level of the pelvic brim where it was cauterized and transected. The posterior peritoneum was opened along the left side of the uterus and cervix and the left vesicouterine peritoneum was dissected off the lower uterine segment and cervix as additional adhesions were taken down. The left uterine vessels were skeletonized. There was fairly active bleeding from the parametrial tissues and surrounding tissues with some hypervascularity so the uterine vessels were skeletonized and isolated bilaterally before any attempts were made for hemostasis. Now that at the uterine vessels were skeletonized bilaterally they were cauterized thoroughly and transected and then the cardinal, paracervical and uterosacral ligaments were isolated, cauterized and transected in a stepwise fashion bilaterally until all attachments had been freed from the uterus and cervix bilaterally with good hemostasis. Further dissection of the bladder flap was carried out to ensure that the bladder was dissected down below the level of the cervix. A colpotomy was performed following the cap of the VCare manipulator the cervix from the upper vagina. At this point I left the surgeon's console to help facilitate delivery of the specimen. She was placed in high lithotomy position. With tenaculums, countertraction, repositioning and mobilization the specimen was able to be delivered transvaginally including uterus, cervix, tubes and ovaries, and a pneumo-occluder balloon was placed in the vagina to maintain pneumoperitoneum. I returned to the surgeon's console and instruments 1 and 3 were exchanged for needle drivers as 0 Vicryl suture was introduced. The vaginal cuff was closed starting at the left corner, full-thickness closure incorporating the uterosacral ligament and posterior peritoneum, tied via instrument tie. The suture was held on countertraction as a running continuous closure was carried across the vaginal cuff full-thickness to the contralateral side. The right corner was further secured, securing sutured to the uterosacral ligament and posterior peritoneum, and a running closure was carried from right to left to reinforce the cuff and tied securely near the left corner. The instrument was cut and removed. The integrity of the bladder was confirmed by filling the bladder with saline dyed with methylene blue. The bladder distended nicely under pressure. There were no areas of blue, no extravasation of dye, and a good margin between the bladder edge and the vaginal cuff. The bladder was drained. There was good peristalsis of ureters bilaterally. The pelvis and abdomen were thoroughly irrigated. Small bleeders were rendered hemostatic with bipolar cautery. Sites were hemostatic. The anatomy was further inspected. There was no overt evidence of metastatic disease, and in keeping with our preoperative discussion and plan it was felt that all reasonable surgical objectives had been completed. The robotic instruments were removed. The robotic system was disengaged from the operative field. I reentered the bedside under sterile condition. Each of the three Ray-Ingrid sponges that had been placed were removed through the 12 mm cannula. Each were inspected and noted to be removed in their entirety. The 12 mm fascial defect was closed with interrupted 0 Vicryl sutures using a needle pass fascial closure apparatus and tied securely. This rendered the fascia completely airtight and hemostatic. The remaining cannulas were withdrawn. Carbon dioxide gas was removed. 3-0 Vicryl subcutaneous was used and then 3-0 Vicryl subcuticular and Steri-Strips to close the skin incisions. Preliminary counts were correct. She was returned to dorsal lithotomy position. In the process of delivering the large specimen transvaginally there were vaginal lacerations, most noted along the left sidewall and superficial laceration along the right sidewall. These were re-approximated and rendered hemostatic with [id number] 0 Vicryl sutures. The remaining hemostatic agent (Gemma) that had not been utilized the pelvis was placed in the vagina to assist in continued hemostasis. There were no remaining foreign objects in the vagina. Final counts were correct. She was returned to dorsal supine position and was pending reversal of anesthesia when I left the operating room to precede her to the post-anesthesia care unit. MD JODY Malik/KANE /1:22 PM /1:47 PM
--- NOTE | 2017-09-26 16:59 | HHI.CCPN ---
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 Posadas on 09/24, tolerated procedure well was subsequently extubated however has been having borderline O2 sats following extubation in PACU. She was placed on a Ventimask 50% O2 with which her O2 sats borderline around 88%. Critical care consult was requested by Dr. Posadas for acute respiratory failure. Subsequently patient dropped O2 sats to the 70s and was placed on BiPAP in PACU. ABG had been drawn just prior to initiating BiPAP. I evaluated the patient in PACU while she was on BiPAP. Her O2 sats had improved to 97% on settings +10/+5 and FiO2 40%. Patient appeared comfortable on BiPAP and was not in any acute distress. She knew she was in [facility] and was following commands appropriately. She denied any chest pain or nausea. She denied any pain. 09/25: Breathing more comfortably today. On 5 L nasal cannula. Off BiPAP since 9 PM. Awake alert oriented 3. Denies any pain. Minimal vaginal bleeding per shift superintendent RN. 09/26: Was on Ventimask overnight. Given Lasix 20 mg IV and diuresed with improvement in respirations. Now on nasal cannula. She states that she is breathing much better since last night. Objective Vital Signs Date Time Temp Pulse Resp B/P (MAP) Pulse Ox O2 Delivery O2 Flow Rate FiO2 09/26/17 12:00 99.2 91 10 148/72 (97) 99 09/26/17 08:46 Nasal Cannula 6.00 09/26/17 07:00 50 Intake and Output 09/26/17 09/26/17 09/27/17 08:00 16:00 00:00 Intake Total 1240 ml Output Total 1000 ml Balance 240 ml Result Diagram: 09/26/174 09/26/17323 Imaging Well-expanded lung mendez, prominent pulmonary vasculature. Objective Remarks HEENT/Neuro: Pallor present, No icterus, tongue moist, JANELL, Awake alert oriented 3, nonfocal grossly, moving all 4 extremities Neck: No JVD Chest/pulmonary: On nasal cannula 5 L/m, air entry decreased bilaterally at bases, no wheezing or crackles. Occasional rhonchi Cardiovascular: S1-S2 regular no gallop or murmur GI/abdomen: Soft, nontender, bowel sounds sluggish. Steri-Strips noted over lap port sites 3 Extremities: Warm bilaterally, trace edema A/P Assessment and Plan 86-year-old female with: Endometrial cancer status post robot-assisted laparoscopic hysterectomy and bilateral salpingo-oophorectomy Acute respiratory failure requiring BiPAP Suspect COPD exacerbation Advanced COPD on home oxygen Morbid obesity Plan: Neuro: Pain medications as ordered per Dr. Posadas. Follow neuro status Cardiovascular: IV hydration, watch for hypotension. Elevated BNP noted, ordered 2-D echo to assess LV/RV function. Lasix 20 mg IV on 09/25 and 09/26 in view of question of pulmonary vascular congestion with bilateral effusions on chest x-ray Pulmonary: Decreased Solu-Medrol to 40 mg IV every 12 hourly. Duo nebs every 4 hourly and every 2 hourly when necessary. Pulmonary consult requested for advanced COPD. GI/liver: Tolerating by mouth diet Renal/: Strict intake output, monitor and replete electrolites, follow BUN creatinine. Receiving IV fluids. Lasix 20 mg IV 1 dose ordered on 09/25 in view of elevated BNP. Lasix 20 mg IV on 09/26 with improvement in respiration Endocrine: Watch for hyperglycemia, SSI for glycemic control as needed. Heme: Follow CBC. Transfuse to keep hemoglobin above 8 g percent. ID: Perioperative antibiotic prophylaxis per Dr. Posadas. Prophylaxis: SCDs. Subcutaneous heparin when cleared by Mina Oliveira MD Sep 26, 2017 16:59
[2017-09-27] VITALS (16 sets, daily range): BP systolic 126–155; BP diastolic 58–87; PULSE 74–108; RESP 18–33; TEMP 97–98.6; O2SAT 83–98
[2017-09-27] MEDS: RESP: ALBUTEROL 2.5 MG/IPRATROPIUM 0.5 MG NEB (SCH) NEB ×10 (04:44→21:15)
--- NOTE | 2017-09-27 07:24 | PD.ONC.PN ---
Subjective Subjective Remarks patient resting in bed has simple face mask on sats at 96% RN states that she did very well overnight patient reports +BM patient states she feels that her breathing has much improved in the last 24 hours and she is starting to feel "like myself". denies pain increased intake Objective Data Date Time Temp Pulse Resp B/P (MAP) Pulse Ox O2 Delivery O2 Flow Rate FiO2 09/27/17 06:00 104 09/27/17 04:48 97 Simple Mask 9.00 09/27/17 04:00 98.6 103 18 153/79 (103) 98 09/27/17 04:00 108 09/27/17 02:00 90 09/27/17 00:00 98 09/27/17 00:00 97.9 103 22 134/66 (88) 98 09/26/17 23:31 98 Nasal Cannula 6.00 09/26/17 22:00 105 09/26/17 20:00 98 09/26/17 20:00 97.7 98 19 130/59 (82) 91 09/26/17 19:00 92 Nasal Cannula 5.00 09/26/17 16:00 98.0 108 20 129/60 (83) 94 09/26/17 12:00 99.2 91 10 148/72 (97) 99 09/26/17 08:46 90 Nasal Cannula 6.00 09/26/17 08:00 97.8 111 39 145/47 (79) 88 09/27/17 09/27/17 09/27/17 07:00 15:00 23:00 Output Total 1700 ml Balance -1700 ml Result Diagram: 09/26/17 0324 09/26/17 0324 Laboratory Results Laboratory Tests Test 09/26/17 07:50 Urine Color COLORLESS Urine Turbidity CLEAR Urine pH 5.5 Urine Specific [place] 1.005 Urine Protein NEG mg/dL Urine Glucose (UA) NEG mg/dL Urine Ketones NEG mg/dL Urine Occult Blood NEG Urine Nitrite NEG Urine Bilirubin NEG Urine Urobilinogen LESS THAN 2.0 MG/DL Urine Leukocyte Esterase NEG Urine RBC 1 /hpf Urine Mucus FEW /lpf Microscopic Urinalysis Comment CATH-CULT NOT IND Administered Medications Medications (Trade) Dose Ordered Sig/Keenan Route PRN Reason Start Time Stop Time Status Last Admin Dose Admin Sodium Chloride (NS Flush) 2 ml BID IV FLUSH 09/24/17 09:00 09/26/17 21:00 Losartan Potassium (Cozaar) 100 mg DAILY PO 09/25/17 09:00 09/26/17 08:03 Albuterol/ Ipratropium (Duoneb Neb) 1 ampule Q4HR NEB NEB 09/24/17 20:00 09/27/17 04:44 Methylprednisolone Sodium Succinate (SoluMEDROL INJ) 40 mg Q12HR IV PUSH 09/25/17 21:00 09/26/17 21:19 Objective Remarks GENERAL: Well-nourished, well-developed patient. SKIN: Warm and dry. HEAD: Normocephalic. EYES: No scleral icterus. No injection or drainage. CARDIOVASCULAR: Regular rate and rhythm without murmurs. RESPIRATORY: Breath sounds equal bilaterally. No accessory muscle use. simple face mask GASTROINTESTINAL: Abdomen soft, non-tender, nondistended. SS c/d/i EXTREMITIES: teds and scds MUSCULOSKELETAL: Adequate muscle tone. NEUROLOGICAL: No obvious focal deficit. Awake, alert, and oriented x3. PSYCHIATRIC: Appropriate mood and affect; insight and judgment normal. Assessment/Plan Problem List: (1) Post-operative state ICD Codes: Z98.890 - Other specified postprocedural states Status: Acute Plan: POD # 3 s/p RA lap hyst with BSO pain controlled pathology is pending (2) COPD (chronic obstructive pulmonary disease) ICD Codes: J44.9 - COPD (chronic obstructive pulmonary disease) Status: Chronic Plan: [employer] management we appreciate care and assistance appears to have improved in the last 24 hours pulmonology consulted for COPD and respiratory failure Lasix X 1 yesterday prednisone nebs scheduled and PRN currently on simple mask, was weaned to NC yesterday Attending Statement Discussed with Dr. Posadas and he is in agreement with plan of care, Problem Qualifiers (1) COPD (chronic obstructive pulmonary disease): Qualified Codes: J44.1 - Chronic obstructive pulmonary disease with (acute) exacerbation Eron Suh Sep 27, 2017 07:24
--- NOTE | 2017-09-27 09:19 | HHI.PR ---
Subjective Remarks alert more alert no distress 02 SAT 89% ON NC , DID BETTER WITH O2 VIA MASK Objective Vital Signs Date Time Temp Pulse Resp B/P (MAP) Pulse Ox O2 Delivery O2 Flow Rate FiO2 09/27/17 08:22 89 Nasal Cannula 5.00 09/27/17 06:00 104 09/27/17 04:48 97 Simple Mask 9.00 09/27/17 04:00 98.6 103 18 153/79 (103) 98 09/27/17 04:00 108 09/27/17 02:00 90 09/27/17 00:00 98 09/27/17 00:00 97.9 103 22 134/66 (88) 98 09/26/17 23:31 98 Nasal Cannula 6.00 09/26/17 22:00 105 09/26/17 20:00 98 09/26/17 20:00 97.7 98 19 130/59 (82) 91 09/26/17 19:00 92 Nasal Cannula 5.00 09/26/17 16:00 98.0 108 20 129/60 (83) 94 09/26/17 12:00 99.2 91 10 148/72 (97) 99 I/O 09/26/17 09/26/17 09/26/17 09/27/17 09/27/17 09/27/17 07:00 15:00 23:00 07:00 15:00 23:00 Intake Total 1240 ml 845 ml Output Total 1000 ml 2400 ml 1700 ml Balance 240 ml -1555 ml -1700 ml Intake Oral 240 ml 720 ml IV Total 1000 ml 125 ml Output Urine Total 1000 ml 2400 ml 1700 ml # Bowel Movements 0 Result Diagram: 09/26/17 0324 09/26/17 0324 Objective Remarks Laboratory Tests Test 09/24/17 17:10 09/24/17 17:45 09/25/17 04:14 09/25/17 14:24 Arterial Blood pH 7.31 (7.380-7.420) 7.33 (7.380-7.420) Arterial Blood Partial Pressure CO2 51 mmHg (38-42) Blood Gas Hemoglobin 9.2 G/DL (12.0-16.0) 7.9 G/DL (12.0-16.0) White Blood Count 11.1 TH/MM3 (4.0-11.0) 11.9 TH/MM3 (4.0-11.0) Red Blood Count 3.48 MIL/MM3 (4.00-5.30) 3.30 MIL/MM3 (4.00-5.30) Hemoglobin 9.0 GM/DL (11.6-15.3) 8.4 GM/DL (11.6-15.3) Hematocrit 28.5 % (35.0-46.0) 26.8 % (35.0-46.0) Mean Corpuscular Hemoglobin 25.9 PG (27.0-34.0) 25.3 PG (27.0-34.0) Mean Corpuscular Hemoglobin Concent 31.5 % (32.0-36.0) 31.2 % (32.0-36.0) Red Cell Distribution Width 24.6 % (11.6-17.2) 25.3 % (11.6-17.2) Neutrophils (%) (Auto) 93.1 % (16.0-70.0) 93.7 % (16.0-70.0) Lymphocytes (%) (Auto) 5.2 % (9.0-44.0) 5.1 % (9.0-44.0) Neutrophils # (Auto) 10.3 TH/MM3 (1.8-7.7) 11.2 TH/MM3 (1.8-7.7) Lymphocytes # (Auto) 0.6 TH/MM3 (1.0-4.8) 0.6 TH/MM3 (1.0-4.8) Random Glucose 216 MG/DL (74-106) 180 MG/DL (74-106) Albumin 2.9 GM/DL (3.4-5.0) Calcium Level 8.1 MG/DL (8.5-10.1) 7.9 MG/DL (8.5-10.1) Estimat Glomerular Filtration Rate 58 ML/MIN (>89) 60 ML/MIN (>89) Platelet Count 134 TH/MM3 (150-450) Neutrophils % (Manual) 81 % (16-70) Band Neutrophils % 13 % (0-6) Lymphocytes % 3 % (9-44) Neutrophils # (Manual) 11.2 TH/MM3 (1.8-7.7) Toxic Granulation 1+ (NORMAL) Platelet Estimate LOW (NORMAL) B-Type Natriuretic Peptide 333 PG/ML (0-100) Blood Gas HCO3 21 mmol/L (22-26) Blood Gas Base Excess -4.0 mmol/L (-2-2) Arterial Blood Oxygen Content 10.1 Vol % (12.0-20.0) Test 09/26/17 03:24 09/26/17 07:50 White Blood Count 13.3 TH/MM3 (4.0-11.0) Red Blood Count 3.05 MIL/MM3 (4.00-5.30) Hemoglobin 8.0 GM/DL (11.6-15.3) Hematocrit 25.0 % (35.0-46.0) Mean Corpuscular Hemoglobin 26.1 PG (27.0-34.0) Mean Corpuscular Hemoglobin Concent 31.8 % (32.0-36.0) Red Cell Distribution Width 26.0 % (11.6-17.2) Platelet Count 118 TH/MM3 (150-450) Neutrophils (%) (Auto) 93.5 % (16.0-70.0) Lymphocytes (%) (Auto) 3.9 % (9.0-44.0) Neutrophils # (Auto) 12.5 TH/MM3 (1.8-7.7) Lymphocytes # (Auto) 0.5 TH/MM3 (1.0-4.8) Neutrophils % (Manual) 89 % (16-70) Band Neutrophils % 8 % (0-6) Lymphocytes % 2 % (9-44) Neutrophils # (Manual) 13.0 TH/MM3 (1.8-7.7) Myelocytes 1 % (0-0) Nucleated Red Blood Cells 1 /100 WBC (0-0) Platelet Estimate LOW (NORMAL) Random Glucose 155 MG/DL (74-106) Calcium Level 7.7 MG/DL (8.5-10.1) Sodium Level 135 MEQ/L (136-145) Estimat Glomerular Filtration Rate 75 ML/MIN (>89) Urine Mucus FEW /lpf (OCC) Medications and IVs GENERAL: SKIN: Warm and dry. HEAD: Atraumatic. Normocephalic. EYES: Pupils equal and round. No scleral icterus. No injection or drainage. ENT: No nasal bleeding or discharge. Mucous membranes pink and moist. NECK: Trachea midline. No JVD. CARDIOVASCULAR: Regular rate and rhythm. RESPIRATORY: No accessory muscle use. Clear to auscultation. Breath sounds equal bilaterally. GASTROINTESTINAL: Abdomen soft, non-tender, nondistended. Hepatic and splenic margins not palpable. MUSCULOSKELETAL: Extremities without clubbing, cyanosis, or edema. No obvious deformities. NEUROLOGICAL: Awake and alert. No obvious cranial nerve deficits. Motor grossly within normal limits. Five out of 5 muscle strength in the arms and legs. Normal speech. PSYCHIATRIC: Appropriate mood and affect; insight and judgment normal. Assessment and Plan Assessment and Plan RESPIRATORY FAILURE COPD UTERINE CA OBESITY PLAN O2 NEEDED BRONCHODILATOR THERAPY CHANGE O2 TO KALEB LOPEZ CXLANETTE, ABG Ramon Navarro MD Sep 27, 2017 09:19
[2017-09-27] MEDS: methylPREDNISolone SOD SUCC 40 MG/1 ML VIAL IV PUSH SCH ×4 (09:20→20:31)
[2017-09-27] MEDS: LOSARTAN 50 MG TAB PO SCH ×2 (09:20)
[2017-09-27] MEDS: SODIUM CHLORIDE FLUSH BID IV FLUSH SCH ×4 (09:20→20:31)
--- NOTE | 2017-09-27 10:07 | RADRPT ---
EXAM DATE/TIME: 09/27/2017 09:24 [place] COMPARISON: CHEST SINGLE AP, September 25, 2017, 8:24. INDICATIONS : Short of breath MEDICAL HISTORY : Congestive heart failure. SURGICAL HISTORY : None. ENCOUNTER: Subsequent ACUITY: 4 - 6 days PAIN SCORE: 0/10 LOCATION: Chest FINDINGS: The heart is enlarged. There is blunting of the costophrenic recesses bilaterally consistent with ti ny pleural effusions. Stable increased interstitial markings are noted bilaterally. Degenerative ch anges and scoliosis of the thoracolumbar spine are noted. CONCLUSION: No significant change compared to 09/25/2017. Genaro Pierce MD on September 27, 2017 at 9:58 Board Certified Radiologist. This report was verified electronically.
--- NOTE | 2017-09-27 13:14 | HHI.CCPN ---
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 Posadas on 09/24, tolerated procedure well was subsequently extubated however has been having borderline O2 sats following extubation in PACU. She was placed on a Ventimask 50% O2 with which her O2 sats borderline around 88%. Critical care consult was requested by Dr. Posadas for acute respiratory failure. Subsequently patient dropped O2 sats to the 70s and was placed on BiPAP in PACU. ABG had been drawn just prior to initiating BiPAP. I evaluated the patient in PACU while she was on BiPAP. Her O2 sats had improved to 97% on settings +10/+5 and FiO2 40%. Patient appeared comfortable on BiPAP and was not in any acute distress. She knew she was in [facility] and was following commands appropriately. She denied any chest pain or nausea. She denied any pain. 09/25: Breathing more comfortably today. On 5 L nasal cannula. Off BiPAP since 9 PM. Awake alert oriented 3. Denies any pain. Minimal vaginal bleeding per shift mgr RN. 09/26: Was on Ventimask overnight. Given Lasix 20 mg IV and diuresed with improvement in respirations. Now on nasal cannula. She states that she is breathing much better since last night. 09/27: On nasal cannula 5 L/m this morning. Diuresed well with Lasix given yesterday. Awake and alert. O2 sats dropped when she talks continuously. Objective Vital Signs Date Time Temp Pulse Resp B/P (MAP) Pulse Ox O2 Delivery O2 Flow Rate FiO2 09/27/17 13:00 88 Nasal Cannula 5.00 09/27/17 06:00 104 09/27/17 04:00 98.6 18 153/79 (103) 09/26/17 07:00 50 Intake and Output 09/27/17 09/27/17 09/28/17 08:00 16:00 00:00 Output Total 1700 ml Balance -1700 ml Result Diagram: 09/26/17 0324 09/26/17 0324 Other Results Laboratory Tests Test 09/27/17 11:30 Blood Gas Puncture Site LT RADIAL Blood Gas Patient Temperature 98.6 Blood Gas HCO3 29 mmol/L (22-26) Blood Gas Base Excess 4.8 mmol/L (-2-2) Blood Gas Oxygen Saturation 90 % (90-100) Arterial Blood pH 7.43 (7.380-7.420) Arterial Blood Partial Pressure CO2 44 mmHg (38-42) Arterial Blood Partial Pressure O2 63 mmHg (61-120) Arterial Blood Oxygen Content 11.2 Vol % (12.0-20.0) Arterial Blood Carboxyhemoglobin 1.5 % (0-4) Arterial Blood Methemoglobin 1.0 % (0-2) Blood Gas Hemoglobin 8.8 G/DL (12.0-16.0) Oxygen Delivery Device Venti Mask Blood Gas Liter Flow 6 L/M Blood Gas Inspired Oxygen 5 % Imaging Well-expanded lung mendez, prominent pulmonary vasculature. Objective Remarks HEENT/Neuro: Pallor present, No icterus, tongue moist, JANELL, Awake alert oriented 3, nonfocal grossly, moving all 4 extremities Neck: No JVD Chest/pulmonary: On nasal cannula 5 L/m, air entry decreased bilaterally at bases, no wheezing or crackles. Occasional rhonchi Cardiovascular: S1-S2 regular no gallop or murmur GI/abdomen: Soft, nontender, bowel sounds sluggish. Steri-Strips noted over lap port sites 3 Extremities: Warm bilaterally, trace edema A/P Assessment and Plan 86-year-old female with: Endometrial cancer status post robot-assisted laparoscopic hysterectomy and bilateral salpingo-oophorectomy Acute respiratory failure requiring BiPAP Suspect COPD exacerbation Advanced COPD on home oxygen Morbid obesity Plan: Neuro: Pain medications as ordered per Dr. Posadas. Follow neuro status Cardiovascular: IV hydration, watch for hypotension. Elevated BNP noted, ordered 2-D echo to assess LV/RV function. Lasix 20 mg IV on 09/25 and 09/26 in view of question of pulmonary vascular congestion with bilateral effusions on chest x-ray Pulmonary: Solu-Medrol to 40 mg IV every 12 hourly. Duo nebs every 4 hourly and every 2 hourly when necessary. Pulmonary consult requested for advanced COPD. GI/liver: Tolerating by mouth diet Renal/: Strict intake output, monitor and replete electrolites, follow BUN creatinine. Receiving IV fluids. Lasix 20 mg IV 1 dose ordered on 09/25 in view of elevated BNP. Lasix 20 mg IV on 09/26 with improvement in respiration following diuresis Endocrine: Watch for hyperglycemia, SSI for glycemic control as needed. Heme: Follow CBC. Transfuse to keep hemoglobin above 8 g percent. ID: Perioperative antibiotic prophylaxis per Dr. Posadas. Prophylaxis: SCDs. Subcutaneous heparin when cleared by Mina Oliveira MD Sep 27, 2017 13:14
[2017-09-27] MEDS: DIAZEPAM 10 MG TAB PO PRN ×2 (20:31)
[2017-09-28] VITALS (18 sets, daily range): BP systolic 121–172; BP diastolic 57–86; PULSE 89–106; RESP 18–28; TEMP 96.8–99.2; O2SAT 88–99
[2017-09-28] MEDS: RESP: ALBUTEROL 2.5 MG/IPRATROPIUM 0.5 MG NEB (SCH) NEB ×12 (00:11→20:14)
--- NOTE | 2017-09-28 08:12 | HHI.CCPN ---
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 Posadas on 09/24, tolerated procedure well was subsequently extubated however has been having borderline O2 sats following extubation in PACU. She was placed on a Ventimask 50% O2 with which her O2 sats borderline around 88%. Critical care consult was requested by Dr. Posadas for acute respiratory failure. Subsequently patient dropped O2 sats to the 70s and was placed on BiPAP in PACU. ABG had been drawn just prior to initiating BiPAP. I evaluated the patient in PACU while she was on BiPAP. Her O2 sats had improved to 97% on settings +10/+5 and FiO2 40%. Patient appeared comfortable on BiPAP and was not in any acute distress. She knew she was in [facility] and was following commands appropriately. She denied any chest pain or nausea. She denied any pain. 09/25: Breathing more comfortably today. On 5 L nasal cannula. Off BiPAP since 9 PM. Awake alert oriented 3. Denies any pain. Minimal vaginal bleeding per shift supervisor melting RN. 09/26: Was on Ventimask overnight. Given Lasix 20 mg IV and diuresed with improvement in respirations. Now on nasal cannula. She states that she is breathing much better since last night. 09/27: On nasal cannula 5 L/m this morning. Diuresed well with Lasix given yesterday. Awake and alert. O2 sats dropped when she talks continuously. Subjective 09/28: Remains on 5 L nasal cannula. Afebrile. Tolerating diet. Remains stable over past 24 hours Objective Vital Signs Date Time Temp Pulse Resp B/P (MAP) Pulse Ox O2 Delivery O2 Flow Rate FiO2 09/28/17 07:41 91 Nasal Cannula 5.00 09/28/17 06:00 92 09/28/17 04:25 65 09/28/17 04:00 97.3 27 121/69 (86) Intake and Output 09/28/17 09/28/17 09/29/17 08:00 16:00 00:00 Intake Total 480 ml Output Total 650 ml Balance -170 ml Result Diagram: 09/26/17 0324 09/26/17 0324 Imaging Last Impressions Chest X-Ray 09/27/17 0000 Signed Impressions: Service Date/Time: September 09:24 - CONCLUSION: No significant change compared to 09/25/2017. Genaro Pierce MD Objective Remarks GENERAL: 86-year-old female, resting in bed in no acute distress SKIN: Warm and dry. No rash HEAD: Atraumatic. Normocephalic. EYES: Pupils equal and round. No scleral icterus. No injection or drainage. ENT: No nasal bleeding or discharge. Mucous membranes pink and moist. NECK: Trachea midline. No JVD. CARDIOVASCULAR: Regular rate and rhythm. S1, S2. No S4. Without murmur RESPIRATORY: GASTROINTESTINAL: Abdomen soft, non-tender, nondistended. Hepatic and splenic margins not palpable. Incision site is clean dry and intact MUSCULOSKELETAL: Extremities without significant peripheral edema. No obvious deformities. NEUROLOGICAL: Awake and alert. No obvious cranial nerve deficits. Motor grossly within normal limits. Five out of 5 muscle strength in the arms and legs. Normal speech. PSYCHIATRIC: Appropriate mood and affect; insight and judgment normal. A/P Assessment and Plan Uterine papillary serous carcinoma status post robot-assisted laparoscopic hysterectomy and bilateral salpingo-oophorectomy and extensive lysis of adhesions Acute respiratory failure requiring BiPAP currently on 5 L nasal cannula Suspect COPD exacerbation Advanced COPD on home oxygen Morbid obesity Hypertension Elevated PAP Leukocytosis Anemia Plan: Neuro: Pain medications as ordered per Dr. Posadas with [place] 5/325 one every 4 hours when necessary pain. Follow neuro status. Continue with diazepam 10 mg twice a day when necessary anxiety Cardiovascular: IV hydration, watch for hypotension. Currently on losartan 100 mill grams daily/substitution for olmesartan 40 mg daily home medication. Holding aspirin 81 mg daily. Elevated BNP noted around 300, ordered 2-D echo revealed EF 65-70%. Mild TR. Pulmonary arterial pressures 45.2 mmHg. Lasix 20 mg IV on 09/25 and 09/26 in view of question of pulmonary vascular congestion with bilateral effusions on chest x-ray Pulmonary: Solu-Medrol to 40 mg IV every 12 hourly. Budesonide 0.5/2 1 inhalation twice a day along with Albuterol/ipratropium aerosols every 4 hourly and albuterol aerosols every 2 hourly when necessary. Pulmonary consult with Dr. Navarro - advanced COPD. GI/liver: Tolerating regular diet by mouth diet Renal/: Strict intake output, monitor and replete electrolytes, follow BUN creatinine. Receiving IV fluids. Lasix 20 mg IV 1 dose ordered on 09/25 in view of elevated BNP. Lasix 20 mg IV on 09/26 with improvement in respiration following diuresis Endocrine: Watch for hyperglycemia, SSI for glycemic control with Accu-Cheks before meals/at bedtime low regimen Novulin R Heme: Follow CBC. Transfuse to keep hemoglobin above 7. ID: Perioperative antibiotic prophylaxis per Dr. Posadas. Have been completed Prophylaxis: SCDs. Pharmacological prophylaxis when cleared by Rohit Danielson MD Sep 28, 2017 08:12
[2017-09-28] MEDS ORDERED: GLUCAGON 1 MG/ML VIAL OTHER PRN ×2 (08:15)
[2017-09-28] MEDS ORDERED: POTASSIUM CHLORIDE 10 MEQ CONTROLLED RELEASE TAB PO ONE ×2 (08:15)
[2017-09-28] MEDS ORDERED: DEXTROSE 50% IN WATER 50 ML VIAL(D50) IV PUSH PRN (08:15)
[2017-09-28] MEDS ORDERED: RESP: ALBUTEROL 2.5 MG/3 ML NEB (PRN) NEB ×2 (08:15)
--- NOTE | 2017-09-28 08:25 | HHI.PR ---
Subjective Remarks alert no distress 02 SAT 92% ON NC , DID BETTER WITH O2 VIA MASK Objective Vital Signs Date Time Temp Pulse Resp B/P (MAP) Pulse Ox O2 Delivery O2 Flow Rate FiO2 09/28/17 07:41 91 Nasal Cannula 5.00 09/28/17 07:00 88 Nasal Cannula 5.00 Humidified 09/28/17 06:00 92 09/28/17 04:25 96 65 09/28/17 04:00 94 09/28/17 04:00 97.3 106 27 121/69 (86) 88 09/28/17 04:00 90 Nasal Cannula 6.00 Humidified 09/28/17 02:00 98 09/28/17 00:21 Bi-Pap 65 09/28/17 00:12 99 65 09/28/17 00:00 89 09/28/17 00:00 97.8 93 28 137/76 (96) 99 09/27/17 22:14 Bi-Pap 80 09/27/17 22:00 74 09/27/17 21:57 Bi-Pap 100 09/27/17 21:30 Bi-Pap 60 09/27/17 21:18 83 50 09/27/17 21:00 Bi-Pap 50 09/27/17 20:00 97.9 98 33 126/58 (80) 92 09/27/17 20:00 Nasal Cannula 5.00 Humidified 09/27/17 20:00 105 09/27/17 18:00 103 09/27/17 16:00 97.6 101 26 147/65 (92) 91 09/27/17 16:00 101 09/27/17 14:00 93 09/27/17 13:00 88 Nasal Cannula 5.00 09/27/17 12:00 97.0 100 26 155/87 (109) 96 09/27/17 12:00 100 09/27/17 10:00 106 I/O 09/27/17 09/27/17 09/27/17 09/28/17 09/28/17 09/28/17 07:00 15:00 23:00 07:00 15:00 23:00 Intake Total 840 ml 480 ml Output Total 1700 ml 1400 ml 650 ml Balance -1700 ml -560 ml -170 ml Intake Oral 840 ml 480 ml IV Total 0 ml Output Urine Total 1700 ml 1400 ml 650 ml # Bowel Movements 3 0 Result Diagram: 09/26/17 0324 09/26/17 0324 Objective Remarks Laboratory Tests Test 09/24/17 17:10 09/24/17 17:45 09/25/17 04:14 09/25/17 14:24 Arterial Blood pH 7.31 (7.380-7.420) 7.33 (7.380-7.420) Arterial Blood Partial Pressure CO2 51 mmHg (38-42) Blood Gas Hemoglobin 9.2 G/DL (12.0-16.0) 7.9 G/DL (12.0-16.0) White Blood Count 11.1 TH/MM3 (4.0-11.0) 11.9 TH/MM3 (4.0-11.0) Red Blood Count 3.48 MIL/MM3 (4.00-5.30) 3.30 MIL/MM3 (4.00-5.30) Hemoglobin 9.0 GM/DL (11.6-15.3) 8.4 GM/DL (11.6-15.3) Hematocrit 28.5 % (35.0-46.0) 26.8 % (35.0-46.0) Mean Corpuscular Hemoglobin 25.9 PG (27.0-34.0) 25.3 PG (27.0-34.0) Mean Corpuscular Hemoglobin Concent 31.5 % (32.0-36.0) 31.2 % (32.0-36.0) Red Cell Distribution Width 24.6 % (11.6-17.2) 25.3 % (11.6-17.2) Neutrophils (%) (Auto) 93.1 % (16.0-70.0) 93.7 % (16.0-70.0) Lymphocytes (%) (Auto) 5.2 % (9.0-44.0) 5.1 % (9.0-44.0) Neutrophils # (Auto) 10.3 TH/MM3 (1.8-7.7) 11.2 TH/MM3 (1.8-7.7) Lymphocytes # (Auto) 0.6 TH/MM3 (1.0-4.8) 0.6 TH/MM3 (1.0-4.8) Random Glucose 216 MG/DL (74-106) 180 MG/DL (74-106) Albumin 2.9 GM/DL (3.4-5.0) Calcium Level 8.1 MG/DL (8.5-10.1) 7.9 MG/DL (8.5-10.1) Estimat Glomerular Filtration Rate 58 ML/MIN (>89) 60 ML/MIN (>89) Platelet Count 134 TH/MM3 (150-450) Neutrophils % (Manual) 81 % (16-70) Band Neutrophils % 13 % (0-6) Lymphocytes % 3 % (9-44) Neutrophils # (Manual) 11.2 TH/MM3 (1.8-7.7) Toxic Granulation 1+ (NORMAL) Platelet Estimate LOW (NORMAL) B-Type Natriuretic Peptide 333 PG/ML (0-100) Blood Gas HCO3 21 mmol/L (22-26) Blood Gas Base Excess -4.0 mmol/L (-2-2) Arterial Blood Oxygen Content 10.1 Vol % (12.0-20.0) Test 09/26/17 03:24 09/26/17 07:50 White Blood Count 13.3 TH/MM3 (4.0-11.0) Red Blood Count 3.05 MIL/MM3 (4.00-5.30) Hemoglobin 8.0 GM/DL (11.6-15.3) Hematocrit 25.0 % (35.0-46.0) Mean Corpuscular Hemoglobin 26.1 PG (27.0-34.0) Mean Corpuscular Hemoglobin Concent 31.8 % (32.0-36.0) Red Cell Distribution Width 26.0 % (11.6-17.2) Platelet Count 118 TH/MM3 (150-450) Neutrophils (%) (Auto) 93.5 % (16.0-70.0) Lymphocytes (%) (Auto) 3.9 % (9.0-44.0) Neutrophils # (Auto) 12.5 TH/MM3 (1.8-7.7) Lymphocytes # (Auto) 0.5 TH/MM3 (1.0-4.8) Neutrophils % (Manual) 89 % (16-70) Band Neutrophils % 8 % (0-6) Lymphocytes % 2 % (9-44) Neutrophils # (Manual) 13.0 TH/MM3 (1.8-7.7) Myelocytes 1 % (0-0) Nucleated Red Blood Cells 1 /100 WBC (0-0) Platelet Estimate LOW (NORMAL) Random Glucose 155 MG/DL (74-106) Calcium Level 7.7 MG/DL (8.5-10.1) Sodium Level 135 MEQ/L (136-145) Estimat Glomerular Filtration Rate 75 ML/MIN (>89) Urine Mucus FEW /lpf (OCC) Assessment and Plan Assessment and Plan RESPIRATORY FAILURE COPD UTERINE CA OBESITY PLAN O2 NEEDED BRONCHODILATOR THERAPY increase activity Discharge Planning GENERAL: SKIN: Warm and dry. HEAD: Atraumatic. Normocephalic. EYES: Pupils equal and round. No scleral icterus. No injection or drainage. ENT: No nasal bleeding or discharge. Mucous membranes pink and moist. NECK: Trachea midline. No JVD. CARDIOVASCULAR: Regular rate and rhythm. RESPIRATORY: No accessory muscle use. Clear to auscultation. Breath sounds equal bilaterally. GASTROINTESTINAL: Abdomen soft, non-tender, nondistended. Hepatic and splenic margins not palpable. MUSCULOSKELETAL: Extremities without clubbing, cyanosis, or edema. No obvious deformities. NEUROLOGICAL: Awake and alert. No obvious cranial nerve deficits. Motor grossly within normal limits. Five out of 5 muscle strength in the arms and legs. Normal speech. PSYCHIATRIC: Appropriate mood and affect; insight and judgment normal. Ramon Navarro MD Sep 28, 2017 08:25
--- NOTE | 2017-09-28 08:57 | HHI.PR ---
Subjective . She reports feeling stronger this morning, breathing less labored, good appetite , no new c/o Objective . afeb, O2 sats from 88-96%, A&Ox3 Currently sitting up in bed eating regular breakfast, sats 90-92% on NC 5L/min. Sats maintained even while talking, eating abd soft clean & dry, minimal vaginal spotting Assessment/Plan . Some improvement in last 24 hours Importance of increasing physical activity is again emphasized OOB to chair with assistance bid, continue ongoing respiratory therapy/ interventions CPM, work toward rehab placement. Liane Posadas MD Sep 28, 2017 08:57
[2017-09-28] MEDS: methylPREDNISolone SOD SUCC 40 MG/1 ML VIAL IV PUSH SCH ×4 (09:00→20:59)
[2017-09-28] MEDS: LOSARTAN 50 MG TAB PO SCH ×2 (09:00)
[2017-09-28] MEDS: SODIUM CHLORIDE FLUSH BID IV FLUSH SCH ×4 (09:00→20:59)
[2017-09-28 09:33] LABS: AUTOMATED NEUTROPHIL # 9.4 TH/MM3 (1.8-7.7); BASOPHIL # 0.1 TH/MM3 (0-0.2); BASOPHIL % 1.1 % (0.0-2.0); HEMATOCRIT 28.1 % (35.0-46.0); HEMOGLOBIN 8.8 GM/DL (11.6-15.3); LYMPHOCYTE # 1.5 TH/MM3 (1.0-4.8); MEAN CELL VOLUME 81.5 FL (80.0-100.0); MEAN CORPUSCULAR HEMOGLOBIN 25.5 PG (27.0-34.0); MEAN CORPUSCULAR HGB CONC 31.2 % (32.0-36.0); MONO % 5.2 % (0.0-8.0); MONOCYTE # 0.6 TH/MM3 (0-0.9); NEUT % 80.7 % (16.0-70.0); PLATELET COUNT 140 TH/MM3 (150-450); RED BLOOD COUNT 3.45 MIL/MM3 (4.00-5.30); RED CELL DISTRIBUTION WIDTH 25.7 % (11.6-17.2); WHITE BLOOD COUNT 11.7 TH/MM3 (4.0-11.0)
[2017-09-28 10:09] LABS: BICARBONATE 29.1 MEQ/L (21.0-32.0); CALCIUM 8.7 MG/DL (8.5-10.1); CREATININE 0.65 MG/DL (0.50-1.00); MAGNESIUM 1.8 MG/DL (1.5-2.5)
[2017-09-28 10:13] LABS: BANDS 4 % (0-6); LYMPHOCYTES 9 % (9-44); MONOCYTES 2 % (0-8); MYELOCYTES 7 % (0-0); NEUTROPHIL # MANUAL DIFF 10.4 TH/MM3 (1.8-7.7); POLYS (SEG NEUTROPHILS) 78 % (16-70)
[2017-09-28] MEDS: INSULIN NovoLIN REGULAR SUPPLEMENTAL SCALE SQ SCH ×6 (11:58→21:00)
[2017-09-28] MEDS: RESP: BUDESONIDE 0.5 MG/2 ML NEB NEB SCH ×2 (20:17)
[2017-09-28] MEDS: DIAZEPAM 10 MG TAB PO PRN ×2 (22:01)
[2017-09-29] VITALS (10 sets, daily range): BP systolic 123–162; BP diastolic 62–77; PULSE 83–103; RESP 17–20; TEMP 96–97.3; O2SAT 92–96
[2017-09-29] MEDS: RESP: ALBUTEROL 2.5 MG/IPRATROPIUM 0.5 MG NEB (SCH) NEB ×14 (01:23→23:42)
[2017-09-29] MEDS: RESP: BUDESONIDE 0.5 MG/2 ML NEB NEB SCH ×4 (08:00→20:39)
[2017-09-29] MEDS: INSULIN NovoLIN REGULAR SUPPLEMENTAL SCALE SQ SCH ×8 (08:00→21:03)
[2017-09-29] MEDS: LOSARTAN 50 MG TAB PO SCH ×2 (08:11)
[2017-09-29] MEDS: methylPREDNISolone SOD SUCC 40 MG/1 ML VIAL IV PUSH SCH ×4 (08:11→20:01)
[2017-09-29] MEDS: SODIUM CHLORIDE FLUSH BID IV FLUSH SCH ×4 (08:16→20:01)
--- NOTE | 2017-09-29 10:29 | PD.ONC.PN ---
Subjective Subjective Remarks Afebrile overnight. Eager to go to rehab. Resting in bed with daughter in law at bedside. Used bipap for four hours last night, "then I couldn't take it anymore." Hoping to have landers catheter taken out today. Objective Data Date Time Temp Pulse Resp B/P (MAP) Pulse Ox O2 Delivery O2 Flow Rate FiO2 09/29/17 08:23 95 Nasal Cannula 6.00 09/29/17 08:00 96.0 95 17 149/73 (98) 94 09/29/17 04:00 97.3 94 18 144/77 (99) 95 09/29/17 00:00 97.0 98 18 123/70 (87) 94 09/28/17 23:15 95 45 09/28/17 23:00 98 09/28/17 21:30 94 Nasal Cannula 6.00 09/28/17 21:30 96.8 106 18 131/67 (88) 94 09/28/17 20:19 95 Nasal Cannula 5.00 09/28/17 20:00 90 09/28/17 20:00 98.8 103 27 124/57 (79) 94 09/28/17 19:00 92 Nasal Cannula 6.00 09/28/17 18:00 93 09/28/17 16:00 98.5 89 20 158/70 (99) 94 09/28/17 16:00 96 09/28/17 14:00 104 09/28/17 12:00 99.2 94 24 172/86 (114) 88 09/28/17 12:00 94 09/29/17 09/29/17 09/29/17 07:00 15:00 23:00 Intake Total 240 ml Output Total 1250 ml Balance -1010 ml Result Diagram: 09/28/1791409/28/1715 Administered Medications Medications (Trade) Dose Ordered Sig/[place] Route PRN Reason Start Time Stop Time Status Last Admin Dose Admin Sodium Chloride (NS Flush) 2 ml BID IV FLUSH 09/24/17 09:00 09/29/17 08:16 Diazepam (Valium) 10 mg BID PRN PO ANXIETY 09/24/17 12:00 09/28/17 22:01 Losartan Potassium (Cozaar) 100 mg DAILY PO 09/25/17 09:00 09/29/17 08:11 Oxycodone/ Acetaminophen (Percocet 5-325 Mg) 2 tab Q4H PRN PO PAIN SCALE 6 TO 10 09/24/17 12:00 09/27/17 23:48 Diphenhydramine HCl (Benadryl) 25 mg Q6H PRN PO ITCHING 09/24/17 12:00 09/27/17 22:34 Methylprednisolone Sodium Succinate (SoluMEDROL INJ) 40 mg Q12HR IV PUSH 09/25/17 21:00 09/29/17 08:11 Albuterol/ Ipratropium (Duoneb Neb) 1 ampule Q4HR NEB NEB 09/28/17 12:00 09/29/17 08:20 Budesonide (Pulmicort Respule Neb) 0.5 mg Q12HR NEB NEB 09/28/17 20:00 09/28/17 20:17 Insulin Human Regular (NovoLIN R SUPPLEMENTAL SCALE) 1 ACHS SLIDING SCALE SQ 09/28/17 12:00 09/28/17 21:00 Objective Remarks GENERAL: Pleasant elderly female sitting up in bed in nad. SKIN: Warm and dry. HEAD: Normocephalic. EYES: No injection or drainage. NECK: Supple, trachea midline. CARDIOVASCULAR: Regular rate and rhythm RESPIRATORY: anterior mendez clear. on 5L O2 via NC GASTROINTESTINAL: Abdomen soft, non-tender, nondistended. steri-strips in place along abdomen incision sites. no bleeding. EXTREMITIES: No cyanosis. NEUROLOGICAL: No obvious focal deficit. Awake, alert, and oriented x3. Assessment/Plan Problem List: (1) Post-operative state ICD Codes: Z98.890 - Other specified postprocedural states Status: Acute Plan: POD # 5 s/p RA lap hyst with BSO (2) COPD (chronic obstructive pulmonary disease) ICD Codes: J44.9 - COPD (chronic obstructive pulmonary disease) Status: Chronic Plan: --remains on 5L O2 at rest. --pulmonology following Plan 1. will need pulmonology clearance and plan for bipap/cpap at night prior to d/ c to rehab 2. ok to d/c landers catheter. 3. continue supportive care. d/w patient, patient's daughter in law, [employer] and patient's nurse. Attending Statement The exam, history, and the medical decision-making described in the above note were completed with the assistance of the mid-level provider. I reviewed and agree with the findings presented. I attest that I had a [id number] encounter with the patient on the same day, and personally performed and documented my assessment and findings in the medical record. 86 yoF s/p hysterectomy and BSO with papillary serous uterine carcinoma. She experienced post operative pulmonary complications and pulmonary team is following. Problem Qualifiers (1) COPD (chronic obstructive pulmonary disease): Qualified Codes: J44.1 - Chronic obstructive pulmonary disease with (acute) exacerbation Ally Mas Sep 29, 2017 10:29 Suzette Quiñones MD Sep 29, 2017 17:28
[2017-09-29] MEDS: PANTOPRAZOLE SOD 20 MG DELAYED RELEASE TAB PO SCH ×2 (11:03)
--- NOTE | 2017-09-29 15:23 | HHI.PR ---
Subjective Remarks alert no distress 02 SAT 92% ON NC , DID BETTER WITH O2 VIA MASK Objective Vital Signs Date Time Temp Pulse Resp B/P (MAP) Pulse Ox O2 Delivery O2 Flow Rate FiO2 09/29/17 12:00 96.4 94 18 162/71 (101) 92 09/29/17 08:23 95 Nasal Cannula 6.00 09/29/17 08:10 95 09/29/17 08:10 Nasal Cannula 6.00 09/29/17 08:00 96.0 95 17 149/73 (98) 94 09/29/17 04:00 97.3 94 18 144/77 (99) 95 09/29/17 00:00 97.0 98 18 123/70 (87) 94 09/28/17 23:15 95 45 09/28/17 23:00 98 09/28/17 21:30 94 Nasal Cannula 6.00 09/28/17 21:30 96.8 106 18 131/67 (88) 94 09/28/17 20:19 95 Nasal Cannula 5.00 09/28/17 20:00 90 09/28/17 20:00 98.8 103 27 124/57 (79) 94 09/28/17 19:00 92 Nasal Cannula 6.00 09/28/17 18:00 93 09/28/17 16:00 98.5 89 20 158/70 (99) 94 09/28/17 16:00 96 I/O 09/28/17 09/28/17 09/28/17 09/29/17 09/29/17 09/29/17 07:00 15:00 23:00 07:00 15:00 23:00 Intake Total 480 ml 840 ml 240 ml Output Total 650 ml 2200 ml 1250 ml Balance -170 ml -1360 ml -1010 ml Intake Oral 480 ml 840 ml 240 ml IV Total 0 ml Output Urine Total 650 ml 2200 ml 1250 ml # Bowel Movements 0 1 0 Result Diagram: 09/28/1791409/28/17914 Objective Remarks Laboratory Tests Test 09/24/17 17:10 09/24/17 17:45 09/25/17 04:14 09/25/17 14:24 Arterial Blood pH 7.31 (7.380-7.420) 7.33 (7.380-7.420) Arterial Blood Partial Pressure CO2 51 mmHg (38-42) Blood Gas Hemoglobin 9.2 G/DL (12.0-16.0) 7.9 G/DL (12.0-16.0) White Blood Count 11.1 TH/MM3 (4.0-11.0) 11.9 TH/MM3 (4.0-11.0) Red Blood Count 3.48 MIL/MM3 (4.00-5.30) 3.30 MIL/MM3 (4.00-5.30) Hemoglobin 9.0 GM/DL (11.6-15.3) 8.4 GM/DL (11.6-15.3) Hematocrit 28.5 % (35.0-46.0) 26.8 % (35.0-46.0) Mean Corpuscular Hemoglobin 25.9 PG (27.0-34.0) 25.3 PG (27.0-34.0) Mean Corpuscular Hemoglobin Concent 31.5 % (32.0-36.0) 31.2 % (32.0-36.0) Red Cell Distribution Width 24.6 % (11.6-17.2) 25.3 % (11.6-17.2) Neutrophils (%) (Auto) 93.1 % (16.0-70.0) 93.7 % (16.0-70.0) Lymphocytes (%) (Auto) 5.2 % (9.0-44.0) 5.1 % (9.0-44.0) Neutrophils # (Auto) 10.3 TH/MM3 (1.8-7.7) 11.2 TH/MM3 (1.8-7.7) Lymphocytes # (Auto) 0.6 TH/MM3 (1.0-4.8) 0.6 TH/MM3 (1.0-4.8) Random Glucose 216 MG/DL (74-106) 180 MG/DL (74-106) Albumin 2.9 GM/DL (3.4-5.0) Calcium Level 8.1 MG/DL (8.5-10.1) 7.9 MG/DL (8.5-10.1) Estimat Glomerular Filtration Rate 58 ML/MIN (>89) 60 ML/MIN (>89) Platelet Count 134 TH/MM3 (150-450) Neutrophils % (Manual) 81 % (16-70) Band Neutrophils % 13 % (0-6) Lymphocytes % 3 % (9-44) Neutrophils # (Manual) 11.2 TH/MM3 (1.8-7.7) Toxic Granulation 1+ (NORMAL) Platelet Estimate LOW (NORMAL) B-Type Natriuretic Peptide 333 PG/ML (0-100) Blood Gas HCO3 21 mmol/L (22-26) Blood Gas Base Excess -4.0 mmol/L (-2-2) Arterial Blood Oxygen Content 10.1 Vol % (12.0-20.0) Test 09/26/17 03:24 09/26/17 07:50 White Blood Count 13.3 TH/MM3 (4.0-11.0) Red Blood Count 3.05 MIL/MM3 (4.00-5.30) Hemoglobin 8.0 GM/DL (11.6-15.3) Hematocrit 25.0 % (35.0-46.0) Mean Corpuscular Hemoglobin 26.1 PG (27.0-34.0) Mean Corpuscular Hemoglobin Concent 31.8 % (32.0-36.0) Red Cell Distribution Width 26.0 % (11.6-17.2) Platelet Count 118 TH/MM3 (150-450) Neutrophils (%) (Auto) 93.5 % (16.0-70.0) Lymphocytes (%) (Auto) 3.9 % (9.0-44.0) Neutrophils # (Auto) 12.5 TH/MM3 (1.8-7.7) Lymphocytes # (Auto) 0.5 TH/MM3 (1.0-4.8) Neutrophils % (Manual) 89 % (16-70) Band Neutrophils % 8 % (0-6) Lymphocytes % 2 % (9-44) Neutrophils # (Manual) 13.0 TH/MM3 (1.8-7.7) Myelocytes 1 % (0-0) Nucleated Red Blood Cells 1 /100 WBC (0-0) Platelet Estimate LOW (NORMAL) Random Glucose 155 MG/DL (74-106) Calcium Level 7.7 MG/DL (8.5-10.1) Sodium Level 135 MEQ/L (136-145) Estimat Glomerular Filtration Rate 75 ML/MIN (>89) Urine Mucus FEW /lpf (OCC) Assessment and Plan Assessment and Plan RESPIRATORY FAILURE COPD UTERINE CA IMPROVING PLAN O2 NEEDED INCREASE ACTIVITY HOME WHEN OXYGENATION IMPROVED Ramon Navarro MD Sep 29, 2017 15:23
[2017-09-29 20:15] LABS: AUTOMATED NEUTROPHIL # 11.8 TH/MM3 (1.8-7.7); BASOPHIL % 0.1 % (0.0-2.0); HEMATOCRIT 30.7 % (35.0-46.0); HEMOGLOBIN 9.7 GM/DL (11.6-15.3); LYMPH % 9.7 % (9.0-44.0); LYMPHOCYTE # 1.3 TH/MM3 (1.0-4.8); MEAN CELL VOLUME 81.4 FL (80.0-100.0); MEAN CORPUSCULAR HEMOGLOBIN 25.7 PG (27.0-34.0); MEAN CORPUSCULAR HGB CONC 31.6 % (32.0-36.0); MEAN PLATELET VOLUME 9.1 FL (7.0-11.0); MONO % 4.5 % (0.0-8.0); MONOCYTE # 0.6 TH/MM3 (0-0.9); NEUT % 85.7 % (16.0-70.0); PLATELET COUNT 185 TH/MM3 (150-450); RED BLOOD COUNT 3.78 MIL/MM3 (4.00-5.30); RED CELL DISTRIBUTION WIDTH 26.4 % (11.6-17.2); WHITE BLOOD COUNT 13.8 TH/MM3 (4.0-11.0)
[2017-09-29 20:43] LABS: ALBUMIN 3.1 GM/DL (3.4-5.0); AST (GOT) 35 U/L (15-37); BICARBONATE 29.5 MEQ/L (21.0-32.0); BLOOD UREA NITROGEN 25 MG/DL (7-18); CALCIUM 8.6 MG/DL (8.5-10.1); CHLORIDE 93 MEQ/L (98-107); CREATININE 0.92 MG/DL (0.50-1.00); GLOMERULAR FILTRATION RATE 58 ML/MIN (>89); GLUCOSE,RANDOM 145 MG/DL (74-106); SODIUM (NA) 132 MEQ/L (136-145)
[2017-09-29 20:49] LABS: ALKALINE PHOSPHATASE 61 U/L (45-117); ALT (GPT) 27 U/L (10-53); TOTAL BILIRUBIN ADULT 0.7 MG/DL (0.2-1.0); TOTAL PROTEIN 6.9 GM/DL (6.4-8.2)
[2017-09-29 21:04] LABS: BANDS 2 % (0-6); CORRECTED NUCLEATED RBC 1 /100 WBC (0-0); LYMPHOCYTES 12 % (9-44); METAMYELOCYTES 1 % (0-1); MONOCYTES 2 % (0-8); MYELOCYTES 10 % (0-0); NEUTROPHIL # MANUAL DIFF 11.9 TH/MM3 (1.8-7.7); NUCLEATED RED BLOOD CELL 1 (0-0); POLYS (SEG NEUTROPHILS) 71 % (16-70); PROMYELOCYTES 2 % (0-0)
[2017-09-30] VITALS (9 sets, daily range): BP systolic 119–149; BP diastolic 41–90; PULSE 76–110; RESP 16–22; TEMP 96–97.4; O2SAT 92–96
[2017-09-30] MEDS: RESP: ALBUTEROL 2.5 MG/IPRATROPIUM 0.5 MG NEB (SCH) NEB ×10 (03:51→20:07)
[2017-09-30 07:14] LABS: AUTOMATED NEUTROPHIL # 10.1 TH/MM3 (1.8-7.7); BASOPHIL % 0.1 % (0.0-2.0); HEMOGLOBIN 9.5 GM/DL (11.6-15.3); LYMPH % 10.3 % (9.0-44.0); LYMPHOCYTE # 1.2 TH/MM3 (1.0-4.8); MEAN CELL VOLUME 81.8 FL (80.0-100.0); MEAN CORPUSCULAR HEMOGLOBIN 25.8 PG (27.0-34.0); MEAN CORPUSCULAR HGB CONC 31.6 % (32.0-36.0); MEAN PLATELET VOLUME 9.4 FL (7.0-11.0); MONOCYTE # 0.5 TH/MM3 (0-0.9); NEUT % 85.6 % (16.0-70.0); PLATELET COUNT 175 TH/MM3 (150-450); RED BLOOD COUNT 3.66 MIL/MM3 (4.00-5.30); RED CELL DISTRIBUTION WIDTH 25.7 % (11.6-17.2); WHITE BLOOD COUNT 11.8 TH/MM3 (4.0-11.0)
[2017-09-30 07:26] LABS: BICARBONATE 29.1 MEQ/L (21.0-32.0); CALCIUM 8.3 MG/DL (8.5-10.1); CREATININE 0.78 MG/DL (0.50-1.00)
[2017-09-30] MEDS: INSULIN NovoLIN REGULAR SUPPLEMENTAL SCALE SQ SCH ×8 (08:00→21:11)
[2017-09-30] MEDS: RESP: BUDESONIDE 0.5 MG/2 ML NEB NEB SCH ×4 (08:30→20:07)
[2017-09-30] MEDS: methylPREDNISolone SOD SUCC 40 MG/1 ML VIAL IV PUSH SCH ×4 (09:07→21:16)
[2017-09-30] MEDS: LOSARTAN 50 MG TAB PO SCH ×2 (09:07)
[2017-09-30] MEDS: PANTOPRAZOLE SOD 20 MG DELAYED RELEASE TAB PO SCH ×2 (09:07)
[2017-09-30] MEDS: SODIUM CHLORIDE FLUSH BID IV FLUSH SCH ×4 (09:12→21:00)
--- NOTE | 2017-09-30 09:18 | PD.ONC.PN ---
Subjective Subjective Remarks Afebrile overnight. Patient urinating okay since landers removed yesterday. Patient's [birth year] is today, she is hoping to go home soon. I wished her a happy birthday and advised her we are waiting for her oxygenation to improve and will need pulmonology to clear her for d/c first. Patient expressed understanding/agreement with plan. Objective Data Date Time Temp Pulse Resp B/P (MAP) Pulse Ox O2 Delivery O2 Flow Rate FiO2 09/30/17 08:33 95 Nasal Cannula 4.00 09/30/17 08:00 96.1 99 16 119/73 (88) 93 09/30/17 04:00 97.4 106 22 139/71 (93) 94 09/30/17 03:53 92 Nasal Cannula 4.00 09/30/17 00:00 96.5 110 20 126/41 (69) 95 09/29/17 23:44 95 Nasal Cannula 4.00 09/29/17 22:24 83 09/29/17 20:39 Nasal Cannula 4.00 09/29/17 19:00 96.1 103 20 127/62 (83) 96 09/29/17 16:00 96.1 91 18 146/67 (93) 92 09/29/17 12:00 96.4 94 18 162/71 (101) 92 09/30/17 09/30/17 09/30/17 07:00 15:00 23:00 Intake Total 120 ml Output Total 1000 ml Balance -880 ml Result Diagram: 09/30/17 0500 09/30/17 0500 Laboratory Results Laboratory Tests Test 09/29/17 19:20 09/30/17 05:00 White Blood Count 13.8 TH/MM3 11.8 TH/MM3 Red Blood Count 3.78 MIL/MM3 3.66 MIL/MM3 Hemoglobin 9.7 GM/DL 9.5 GM/DL Hematocrit 30.7 % 30.0 % Mean Corpuscular Volume 81.4 FL 81.8 FL Mean Corpuscular Hemoglobin 25.7 PG 25.8 PG Mean Corpuscular Hemoglobin Concent 31.6 % 31.6 % Red Cell Distribution Width 26.4 % 25.7 % Platelet Count 185 TH/MM3 175 TH/MM3 Mean Platelet Volume 9.1 FL 9.4 FL Neutrophils (%) (Auto) 85.7 % 85.6 % Lymphocytes (%) (Auto) 9.7 % 10.3 % Monocytes (%) (Auto) 4.5 % 4.0 % Eosinophils (%) (Auto) 0.0 % 0.0 % Basophils (%) (Auto) 0.1 % 0.1 % Neutrophils # (Auto) 11.8 TH/MM3 10.1 TH/MM3 Lymphocytes # (Auto) 1.3 TH/MM3 1.2 TH/MM3 Monocytes # (Auto) 0.6 TH/MM3 0.5 TH/MM3 Eosinophils # (Auto) 0.0 TH/MM3 0.0 TH/MM3 Basophils # (Auto) 0.0 TH/MM3 0.0 TH/MM3 CBC Comment AUTO DIFF AUTO DIFF Differential Total Cells Counted 100 Neutrophils % (Manual) 71 % Band Neutrophils % 2 % Lymphocytes % 12 % Monocytes % 2 % Neutrophils # (Manual) 11.9 TH/MM3 Metamyelocytes 1 % Myelocytes 10 % Promyelocytes 2 % Nucleated Red Blood Cells 1 /100 WBC Differential Comment FINAL DIFF MANUAL Platelet Estimate NORMAL Platelet Morphology Comment ENLARGED Blood Urea Nitrogen 25 MG/DL 27 MG/DL Creatinine 0.92 MG/DL 0.78 MG/DL Random Glucose 145 MG/DL 131 MG/DL Total Protein 6.9 GM/DL Albumin 3.1 GM/DL Calcium Level 8.6 MG/DL 8.3 MG/DL Alkaline Phosphatase 61 U/L Aspartate Amino Transf (AST/SGOT) 35 U/L Alanine Aminotransferase (ALT/SGPT) 27 U/L Total Bilirubin 0.7 MG/DL Sodium Level 132 MEQ/L 133 MEQ/L Potassium Level 4.3 MEQ/L 4.1 MEQ/L Chloride Level 93 MEQ/L 94 MEQ/L Carbon Dioxide Level 29.5 MEQ/L 29.1 MEQ/L Anion Gap 10 MEQ/L 10 MEQ/L Estimat Glomerular Filtration Rate 58 ML/MIN 70 ML/MIN Administered Medications Medications (Trade) Dose Ordered Sig/Keenan Route PRN Reason Start Time Stop Time Status Last Admin Dose Admin Sodium Chloride (NS Flush) 2 ml BID IV FLUSH 09/24/17 09:00 09/30/17 09:12 Diazepam (Valium) 10 mg BID PRN PO ANXIETY 09/24/17 12:00 09/28/17 22:01 Losartan Potassium (Cozaar) 100 mg DAILY PO 09/25/17 09:00 09/30/17 09:07 Oxycodone/ Acetaminophen (Percocet 5-325 Mg) 2 tab Q4H PRN PO PAIN SCALE 6 TO 10 09/24/17 12:00 09/27/17 23:48 Diphenhydramine HCl (Benadryl) 25 mg Q6H PRN PO ITCHING 09/24/17 12:00 09/27/17 22:34 Methylprednisolone Sodium Succinate (SoluMEDROL INJ) 40 mg Q12HR IV PUSH 09/25/17 21:00 09/30/17 09:07 Albuterol/ Ipratropium (Duoneb Neb) 1 ampule Q4HR NEB NEB 09/28/17 12:00 09/30/17 08:30 Budesonide (Pulmicort Respule Neb) 0.5 mg Q12HR NEB NEB 09/28/17 20:00 09/30/17 08:30 Insulin Human Regular (NovoLIN R SUPPLEMENTAL SCALE) 1 ACHS SLIDING SCALE SQ 09/28/17 12:00 09/28/17 21:00 Pantoprazole Sodium (Protonix) 20 mg DAILY PO 09/29/17 11:00 09/30/17 09:07 Objective Remarks GENERAL: Pleasant elderly female upright in bed in [facility]. SKIN: Warm and dry. HEAD: Normocephalic. EYES: No injection or drainage. NECK: Supple, trachea midline. CARDIOVASCULAR: Regular rate and rhythm RESPIRATORY: anterior mendez clear. on 4.5L O2 via NC GASTROINTESTINAL: Abdomen soft, non-tender, nondistended. steri-strips at incision sites. no bleeding. EXTREMITIES: No cyanosis. NEUROLOGICAL: awake and alert, normal speech. moving all extremities. Assessment/Plan Problem List: (1) Post-operative state ICD Codes: Z98.890 - Other specified postprocedural states Status: Acute Plan: POD # 6 s/p RA lap hyst with BSO (2) COPD (chronic obstructive pulmonary disease) ICD Codes: J44.9 - COPD (chronic obstructive pulmonary disease) Status: Chronic Plan: --remains on 4.5L O2 at rest. --pulmonology following --on steroids/pulmicort. Plan 1. continue steroids/breathing treatments per respiratory 2. continue physical therapy 3. once respiratory status improves/patient cleared by pulmonology, will d/c to rehab. Attending Statement The exam, history, and the medical decision-making described in the above note were completed with the assistance of the mid-level provider. I reviewed and agree with the findings presented. I attest that I had a [id number] encounter with the patient on the same day, and personally performed and documented my assessment and findings in the medical record. 87 yoF s/p hysterectomy and BSO. Post op course complicated by COPD exacerbation. AF, VSS. Problem Qualifiers (1) COPD (chronic obstructive pulmonary disease): Qualified Codes: J44.1 - Chronic obstructive pulmonary disease with (acute) exacerbation Ally Mas Sep 30, 2017 09:18 Suzette Quiñones MD Sep 30, 2017 13:01
[2017-09-30 14:33] LABS: BANDS 12 % (0-6); LYMPHOCYTES 12 % (9-44); METAMYELOCYTES 3 % (0-1); MONOCYTES 5 % (0-8); MYELOCYTES 3 % (0-0); NEUTROPHIL # MANUAL DIFF 9.8 TH/MM3 (1.8-7.7); POLYS (SEG NEUTROPHILS) 65 % (16-70)
[2017-09-30 14:34] LABS: TARGET CELLS 1+ (NORMAL); TOXIC GRANULATION 2+ (NORMAL)
--- NOTE | 2017-09-30 16:44 | HHI.PR ---
Subjective Remarks alert no distress 02 SAT 92% ON NC , DID BETTER WITH O2 VIA MASK Objective Vital Signs Date Time Temp Pulse Resp B/P (MAP) Pulse Ox O2 Delivery O2 Flow Rate FiO2 09/30/17 12:00 96.0 92 16 133/62 (85) 95 09/30/17 08:33 95 Nasal Cannula 4.00 09/30/17 08:00 96.1 99 16 119/73 (88) 93 09/30/17 04:00 97.4 106 22 139/71 (93) 94 09/30/17 03:53 92 Nasal Cannula 4.00 09/30/17 00:00 96.5 110 20 126/41 (69) 95 09/29/17 23:44 95 Nasal Cannula 4.00 09/29/17 22:24 83 09/29/17 20:39 Nasal Cannula 4.00 09/29/17 19:00 96.1 103 20 127/62 (83) 96 I/O 09/29/17 09/29/17 09/29/17 09/30/17 09/30/17 09/30/17 07:00 15:00 23:00 07:00 15:00 23:00 Intake Total 240 ml 720 ml 120 ml Output Total 1250 ml 1000 ml Balance -1010 ml 720 ml -880 ml Intake Oral 240 ml 720 ml 120 ml Output Urine Total 1250 ml 1000 ml # Voids 1 # Bowel Movements 0 1 Result Diagram: 09/30/17 0500 09/30/17 0500 Objective Remarks Laboratory Tests Test 09/24/17 17:10 09/24/17 17:45 09/25/17 04:14 09/25/17 14:24 Arterial Blood pH 7.31 (7.380-7.420) 7.33 (7.380-7.420) Arterial Blood Partial Pressure CO2 51 mmHg (38-42) Blood Gas Hemoglobin 9.2 G/DL (12.0-16.0) 7.9 G/DL (12.0-16.0) White Blood Count 11.1 TH/MM3 (4.0-11.0) 11.9 TH/MM3 (4.0-11.0) Red Blood Count 3.48 MIL/MM3 (4.00-5.30) 3.30 MIL/MM3 (4.00-5.30) Hemoglobin 9.0 GM/DL (11.6-15.3) 8.4 GM/DL (11.6-15.3) Hematocrit 28.5 % (35.0-46.0) 26.8 % (35.0-46.0) Mean Corpuscular Hemoglobin 25.9 PG (27.0-34.0) 25.3 PG (27.0-34.0) Mean Corpuscular Hemoglobin Concent 31.5 % (32.0-36.0) 31.2 % (32.0-36.0) Red Cell Distribution Width 24.6 % (11.6-17.2) 25.3 % (11.6-17.2) Neutrophils (%) (Auto) 93.1 % (16.0-70.0) 93.7 % (16.0-70.0) Lymphocytes (%) (Auto) 5.2 % (9.0-44.0) 5.1 % (9.0-44.0) Neutrophils # (Auto) 10.3 TH/MM3 (1.8-7.7) 11.2 TH/MM3 (1.8-7.7) Lymphocytes # (Auto) 0.6 TH/MM3 (1.0-4.8) 0.6 TH/MM3 (1.0-4.8) Random Glucose 216 MG/DL (74-106) 180 MG/DL (74-106) Albumin 2.9 GM/DL (3.4-5.0) Calcium Level 8.1 MG/DL (8.5-10.1) 7.9 MG/DL (8.5-10.1) Estimat Glomerular Filtration Rate 58 ML/MIN (>89) 60 ML/MIN (>89) Platelet Count 134 TH/MM3 (150-450) Neutrophils % (Manual) 81 % (16-70) Band Neutrophils % 13 % (0-6) Lymphocytes % 3 % (9-44) Neutrophils # (Manual) 11.2 TH/MM3 (1.8-7.7) Toxic Granulation 1+ (NORMAL) Platelet Estimate LOW (NORMAL) B-Type Natriuretic Peptide 333 PG/ML (0-100) Blood Gas HCO3 21 mmol/L (22-26) Blood Gas Base Excess -4.0 mmol/L (-2-2) Arterial Blood Oxygen Content 10.1 Vol % (12.0-20.0) Test 09/26/17 03:24 09/26/17 07:50 White Blood Count 13.3 TH/MM3 (4.0-11.0) Red Blood Count 3.05 MIL/MM3 (4.00-5.30) Hemoglobin 8.0 GM/DL (11.6-15.3) Hematocrit 25.0 % (35.0-46.0) Mean Corpuscular Hemoglobin 26.1 PG (27.0-34.0) Mean Corpuscular Hemoglobin Concent 31.8 % (32.0-36.0) Red Cell Distribution Width 26.0 % (11.6-17.2) Platelet Count 118 TH/MM3 (150-450) Neutrophils (%) (Auto) 93.5 % (16.0-70.0) Lymphocytes (%) (Auto) 3.9 % (9.0-44.0) Neutrophils # (Auto) 12.5 TH/MM3 (1.8-7.7) Lymphocytes # (Auto) 0.5 TH/MM3 (1.0-4.8) Neutrophils % (Manual) 89 % (16-70) Band Neutrophils % 8 % (0-6) Lymphocytes % 2 % (9-44) Neutrophils # (Manual) 13.0 TH/MM3 (1.8-7.7) Myelocytes 1 % (0-0) Nucleated Red Blood Cells 1 /100 WBC (0-0) Platelet Estimate LOW (NORMAL) Random Glucose 155 MG/DL (74-106) Calcium Level 7.7 MG/DL (8.5-10.1) Sodium Level 135 MEQ/L (136-145) Estimat Glomerular Filtration Rate 75 ML/MIN (>89) Urine Mucus FEW /lpf (OCC) Assessment and Plan Assessment and Plan RESPIRATORY FAILURE COPD UTERINE CA IMPROVING PLAN O2 NEEDED INCREASE ACTIVITY HOME WHEN OXYGENATION IMPROVED Ramon Navarro MD Sep 30, 2017 16:44
[2017-10-01] VITALS (7 sets, daily range): BP systolic 100–138; BP diastolic 52–69; PULSE 77–92; RESP 18; TEMP 95.8–97.4; O2SAT 94–98
[2017-10-01] MEDS: RESP: ALBUTEROL 2.5 MG/IPRATROPIUM 0.5 MG NEB (SCH) NEB ×8 (00:38→12:20)
[2017-10-01 07:33] LABS: AUTOMATED NEUTROPHIL # 9.3 TH/MM3 (1.8-7.7); BASOPHIL % 0.3 % (0.0-2.0); HEMOGLOBIN 9.1 GM/DL (11.6-15.3); LYMPH % 11.8 % (9.0-44.0); LYMPHOCYTE # 1.3 TH/MM3 (1.0-4.8); MEAN CELL VOLUME 80.9 FL (80.0-100.0); MEAN CORPUSCULAR HEMOGLOBIN 25.4 PG (27.0-34.0); MEAN CORPUSCULAR HGB CONC 31.4 % (32.0-36.0); MEAN PLATELET VOLUME 9.3 FL (7.0-11.0); MONO % 4.8 % (0.0-8.0); MONOCYTE # 0.5 TH/MM3 (0-0.9); NEUT % 83.1 % (16.0-70.0); PLATELET COUNT 179 TH/MM3 (150-450); RED BLOOD COUNT 3.59 MIL/MM3 (4.00-5.30); RED CELL DISTRIBUTION WIDTH 26.4 % (11.6-17.2); WHITE BLOOD COUNT 11.2 TH/MM3 (4.0-11.0)
--- NOTE | 2017-10-01 07:38 | PD.ONC.PN ---
Subjective Subjective Remarks patient is resting in bed no complaints she states she has only used the NC overnight feels that her cough has improved still getting neb tx denies pain has been OOB Objective Data Date Time Temp Pulse Resp B/P (MAP) Pulse Ox O2 Delivery O2 Flow Rate FiO2 10/01/17 04:00 97.3 86 18 100/52 (68) 95 10/01/17 02:34 79 10/01/17 00:40 95 Nasal Cannula 4.00 10/01/17 00:03 97.4 92 18 138/64 (88) 95 09/30/17 20:07 96 Nasal Cannula 4.00 09/30/17 20:03 96.9 92 18 149/80 (103) 96 09/30/17 16:00 96.2 76 16 128/90 (103) 95 09/30/17 12:00 96.0 92 16 133/62 (85) 95 09/30/17 08:33 95 Nasal Cannula 4.00 09/30/17 08:00 96.1 99 16 119/73 (88) 93 10/01/17 10/01/17 10/01/17 07:00 15:00 23:00 Intake Total 240 ml Balance 240 ml Result Diagram: 09/30/17 0500 09/30/17 0500 Laboratory Results Laboratory Tests Test 10/01/17 07:00 Imaging Studies Last Impressions Chest X-Ray 09/27/17 0000 Signed Impressions: Service Date/Time: September 09:24 - CONCLUSION: No significant change compared to 09/25/2017. Genaro Pierce MD Administered Medications Medications (Trade) Dose Ordered Sig/Keenan Route PRN Reason Start Time Stop Time Status Last Admin Dose Admin Sodium Chloride (NS Flush) 2 ml BID IV FLUSH 09/24/17 09:00 09/30/17 09:12 Diazepam (Valium) 10 mg BID PRN PO ANXIETY 09/24/17 12:00 09/28/17 22:01 Losartan Potassium (Cozaar) 100 mg DAILY PO 09/25/17 09:00 09/30/17 09:07 Oxycodone/ Acetaminophen (Percocet 5-325 Mg) 2 tab Q4H PRN PO PAIN SCALE 6 TO 10 09/24/17 12:00 09/27/17 23:48 Diphenhydramine HCl (Benadryl) 25 mg Q6H PRN PO ITCHING 09/24/17 12:00 09/27/17 22:34 Methylprednisolone Sodium Succinate (SoluMEDROL INJ) 40 mg Q12HR IV PUSH 09/25/17 21:00 09/30/17 21:16 Albuterol/ Ipratropium (Duoneb Neb) 1 ampule Q4HR NEB NEB 09/28/17 12:00 10/01/17 00:38 Budesonide (Pulmicort Respule Neb) 0.5 mg Q12HR NEB NEB 09/28/17 20:00 09/30/17 20:07 Insulin Human Regular (NovoLIN R SUPPLEMENTAL SCALE) 1 ACHS SLIDING SCALE SQ 09/28/17 12:00 09/28/17 21:00 Pantoprazole Sodium (Protonix) 20 mg DAILY PO 09/29/17 11:00 09/30/17 09:07 Objective Remarks GENERAL: Well-nourished, well-developed patient, in NAD SKIN: Warm and dry. HEAD: Normocephalic. EYES: No scleral icterus. No injection or drainage. CARDIOVASCULAR: Regular rate and rhythm without murmurs. RESPIRATORY: Breath sounds equal bilaterally. No accessory muscle use, no wheezing or rhonchi, decreased in bases bilat GASTROINTESTINAL: Abdomen soft, non-tender, nondistended. SS are c/d/i EXTREMITIES: teds and scds MUSCULOSKELETAL: Adequate muscle tone. NEUROLOGICAL: No obvious focal deficit. Awake, alert, and oriented x3. PSYCHIATRIC: Appropriate mood and affect; insight and judgment normal. Assessment/Plan Problem List: (1) Post-operative state ICD Codes: Z98.890 - Other specified postprocedural states Status: Acute Plan: POD # 7 s/p RA carine sanchez with BSO will follow up in [facility] for discussion of final pathology (2) COPD (chronic obstructive pulmonary disease) ICD Codes: J44.9 - COPD (chronic obstructive pulmonary disease) Status: Chronic Plan: --remains on 4.0L O2 at rest. --pulmonology following --on steroids/pulmicort. Plan 1. continue steroids/breathing treatments per respiratory 2. continue physical therapy 3. once respiratory status improves/patient cleared by pulmonology, will d/c to rehab. 4. OK for discharge from surgical standpoint but need OK from pulmonology addendum: Cleared from Pulmonology stand point per Dr. Navarro's note. Dr. Posadas approved discharge to rehab today. Problem Qualifiers (1) COPD (chronic obstructive pulmonary disease): Qualified Codes: J44.1 - Chronic obstructive pulmonary disease with (acute) exacerbation Eron Suh Oct 01, 2017 07:38
[2017-10-01] MEDS: INSULIN NovoLIN REGULAR SUPPLEMENTAL SCALE SQ SCH ×4 (08:00→12:00)
[2017-10-01] MEDS: RESP: BUDESONIDE 0.5 MG/2 ML NEB NEB SCH ×2 (08:05)
--- NOTE | 2017-10-01 08:35 | HHI.PR ---
Subjective Remarks alert no distress 02 SAT 92% ON NC , Objective Vital Signs Date Time Temp Pulse Resp B/P (MAP) Pulse Ox O2 Delivery O2 Flow Rate FiO2 10/01/17 08:08 98 Nasal Cannula 4.00 10/01/17 08:00 95.9 77 18 124/66 (85) 95 10/01/17 04:00 97.3 86 18 100/52 (68) 95 10/01/17 02:34 79 10/01/17 00:40 95 Nasal Cannula 4.00 10/01/17 00:03 97.4 92 18 138/64 (88) 95 09/30/17 20:07 96 Nasal Cannula 4.00 09/30/17 20:03 96.9 92 18 149/80 (103) 96 09/30/17 16:00 96.2 76 16 128/90 (103) 95 09/30/17 12:00 96.0 92 16 133/62 (85) 95 I/O 09/30/17 09/30/17 09/30/17 10/01/17 10/01/17 10/01/17 07:00 15:00 23:00 07:00 15:00 23:00 Intake Total 120 ml 480 ml 240 ml Output Total 1000 ml Balance -880 ml 480 ml 240 ml Intake Oral 120 ml 480 ml 240 ml Output Urine Total 1000 ml # Voids 1 3 # Bowel Movements 0 0 Result Diagram: 10/01/17 0700 09/30/17 0500 Objective Remarks Laboratory Tests Test 09/24/17 17:10 09/24/17 17:45 09/25/17 04:14 09/25/17 14:24 Arterial Blood pH 7.31 (7.380-7.420) 7.33 (7.380-7.420) Arterial Blood Partial Pressure CO2 51 mmHg (38-42) Blood Gas Hemoglobin 9.2 G/DL (12.0-16.0) 7.9 G/DL (12.0-16.0) White Blood Count 11.1 TH/MM3 (4.0-11.0) 11.9 TH/MM3 (4.0-11.0) Red Blood Count 3.48 MIL/MM3 (4.00-5.30) 3.30 MIL/MM3 (4.00-5.30) Hemoglobin 9.0 GM/DL (11.6-15.3) 8.4 GM/DL (11.6-15.3) Hematocrit 28.5 % (35.0-46.0) 26.8 % (35.0-46.0) Mean Corpuscular Hemoglobin 25.9 PG (27.0-34.0) 25.3 PG (27.0-34.0) Mean Corpuscular Hemoglobin Concent 31.5 % (32.0-36.0) 31.2 % (32.0-36.0) Red Cell Distribution Width 24.6 % (11.6-17.2) 25.3 % (11.6-17.2) Neutrophils (%) (Auto) 93.1 % (16.0-70.0) 93.7 % (16.0-70.0) Lymphocytes (%) (Auto) 5.2 % (9.0-44.0) 5.1 % (9.0-44.0) Neutrophils # (Auto) 10.3 TH/MM3 (1.8-7.7) 11.2 TH/MM3 (1.8-7.7) Lymphocytes # (Auto) 0.6 TH/MM3 (1.0-4.8) 0.6 TH/MM3 (1.0-4.8) Random Glucose 216 MG/DL (74-106) 180 MG/DL (74-106) Albumin 2.9 GM/DL (3.4-5.0) Calcium Level 8.1 MG/DL (8.5-10.1) 7.9 MG/DL (8.5-10.1) Estimat Glomerular Filtration Rate 58 ML/MIN (>89) 60 ML/MIN (>89) Platelet Count 134 TH/MM3 (150-450) Neutrophils % (Manual) 81 % (16-70) Band Neutrophils % 13 % (0-6) Lymphocytes % 3 % (9-44) Neutrophils # (Manual) 11.2 TH/MM3 (1.8-7.7) Toxic Granulation 1+ (NORMAL) Platelet Estimate LOW (NORMAL) B-Type Natriuretic Peptide 333 PG/ML (0-100) Blood Gas HCO3 21 mmol/L (22-26) Blood Gas Base Excess -4.0 mmol/L (-2-2) Arterial Blood Oxygen Content 10.1 Vol % (12.0-20.0) Test 09/26/17 03:24 09/26/17 07:50 White Blood Count 13.3 TH/MM3 (4.0-11.0) Red Blood Count 3.05 MIL/MM3 (4.00-5.30) Hemoglobin 8.0 GM/DL (11.6-15.3) Hematocrit 25.0 % (35.0-46.0) Mean Corpuscular Hemoglobin 26.1 PG (27.0-34.0) Mean Corpuscular Hemoglobin Concent 31.8 % (32.0-36.0) Red Cell Distribution Width 26.0 % (11.6-17.2) Platelet Count 118 TH/MM3 (150-450) Neutrophils (%) (Auto) 93.5 % (16.0-70.0) Lymphocytes (%) (Auto) 3.9 % (9.0-44.0) Neutrophils # (Auto) 12.5 TH/MM3 (1.8-7.7) Lymphocytes # (Auto) 0.5 TH/MM3 (1.0-4.8) Neutrophils % (Manual) 89 % (16-70) Band Neutrophils % 8 % (0-6) Lymphocytes % 2 % (9-44) Neutrophils # (Manual) 13.0 TH/MM3 (1.8-7.7) Myelocytes 1 % (0-0) Nucleated Red Blood Cells 1 /100 WBC (0-0) Platelet Estimate LOW (NORMAL) Random Glucose 155 MG/DL (74-106) Calcium Level 7.7 MG/DL (8.5-10.1) Sodium Level 135 MEQ/L (136-145) Estimat Glomerular Filtration Rate 75 ML/MIN (>89) Urine Mucus FEW /lpf (OCC) Assessment and Plan Assessment and Plan RESPIRATORY FAILURE COPD UTERINE CA IMPROVING PLAN O2 NEEDED INCREASE ACTIVITY OK FOR D/C FROM PULMONARY STAND POINT Ramon Navarro MD Oct 01, 2017 08:35
--- NOTE | 2017-10-01 09:06 | HHI.DS ---
Discharge Summary Admission Date Sep 24, 2017 at 18:16 Discharge Date: Oct 01, 2017 Admitting Diagnosis endometrial cancer (1) Endometrial cancer Diagnosis: Principal ICD Codes: C54.1 - Malignant neoplasm of endometrium Status: Acute (2) COPD (chronic obstructive pulmonary disease) Diagnosis: Secondary ICD Codes: J44.9 - COPD (chronic obstructive pulmonary disease) Status: Chronic Procedures RA lap hyst with BSO Brief History This is a very pleasant 87 year old with PMH: of COPD requiring O2 via NC 18/06. She had post menopausal bleeding and was seen in evaluation. Biopsy was performed that shown high grade endometrial cancer, she presented for surgery on 09/24/17. CBC/BMP: 10/01/17 0700 09/30/17 0500 Significant Findings Laboratory Tests Test 09/28/17 09:15 09/29/17 19:20 09/30/17 05:00 10/01/17 07:00 White Blood Count 11.7 TH/MM3 (4.0-11.0) 13.8 TH/MM3 (4.0-11.0) 11.8 TH/MM3 (4.0-11.0) 11.2 TH/MM3 (4.0-11.0) Red Blood Count 3.45 MIL/MM3 (4.00-5.30) 3.78 MIL/MM3 (4.00-5.30) 3.66 MIL/MM3 (4.00-5.30) 3.59 MIL/MM3 (4.00-5.30) Hemoglobin 8.8 GM/DL (11.6-15.3) 9.7 GM/DL (11.6-15.3) 9.5 GM/DL (11.6-15.3) 9.1 GM/DL (11.6-15.3) Hematocrit 28.1 % (35.0-46.0) 30.7 % (35.0-46.0) 30.0 % (35.0-46.0) 29.0 % (35.0-46.0) Mean Corpuscular Hemoglobin 25.5 PG (27.0-34.0) 25.7 PG (27.0-34.0) 25.8 PG (27.0-34.0) 25.4 PG (27.0-34.0) Mean Corpuscular Hemoglobin Concent 31.2 % (32.0-36.0) 31.6 % (32.0-36.0) 31.6 % (32.0-36.0) 31.4 % (32.0-36.0) Red Cell Distribution Width 25.7 % (11.6-17.2) 26.4 % (11.6-17.2) 25.7 % (11.6-17.2) 26.4 % (11.6-17.2) Platelet Count 140 TH/MM3 (150-450) Neutrophils (%) (Auto) 80.7 % (16.0-70.0) 85.7 % (16.0-70.0) 85.6 % (16.0-70.0) 83.1 % (16.0-70.0) Neutrophils # (Auto) 9.4 TH/MM3 (1.8-7.7) 11.8 TH/MM3 (1.8-7.7) 10.1 TH/MM3 (1.8-7.7) 9.3 TH/MM3 (1.8-7.7) Neutrophils % (Manual) 78 % (16-70) 71 % (16-70) Neutrophils # (Manual) 10.4 TH/MM3 (1.8-7.7) 11.9 TH/MM3 (1.8-7.7) 9.8 TH/MM3 (1.8-7.7) Myelocytes 7 % (0-0) 10 % (0-0) 3 % (0-0) Platelet Estimate LOW (NORMAL) Blood Urea Nitrogen 20 MG/DL (7-18) 25 MG/DL (7-18) 27 MG/DL (7-18) Random Glucose 114 MG/DL (74-106) 145 MG/DL (74-106) 131 MG/DL (74-106) Sodium Level 133 MEQ/L (136-145) 132 MEQ/L (136-145) 133 MEQ/L (136-145) Chloride Level 96 MEQ/L (98-107) 93 MEQ/L (98-107) 94 MEQ/L (98-107) Estimat Glomerular Filtration Rate 87 ML/MIN (>89) 58 ML/MIN (>89) 70 ML/MIN (>89) Promyelocytes 2 % (0-0) Nucleated Red Blood Cells 1 /100 WBC (0-0) Platelet Morphology Comment ENLARGED (NORMAL) Albumin 3.1 GM/DL (3.4-5.0) Band Neutrophils % 12 % (0-6) Metamyelocytes 3 % (0-1) Toxic Granulation 2+ (NORMAL) Target Cells 1+ (NORMAL) Calcium Level 8.3 MG/DL (8.5-10.1) Imaging Last Impressions Chest X-Ray 09/27/17 0000 Signed Impressions: Service Date/Time: September 09:24 - CONCLUSION: No significant change compared to 09/25/2017. Genaro Pierce MD PE at Discharge Patient is A and O X 3 in NAD heart RRR no MMR lungs CTA bilat diminished in bilat bases, no wheezing or rhonchi abd: SS are C/D/I without S/S of infection ext: scant bilat LE edema Hospital Course Patient was taken for RA Lap hyst with BSO on 09/24/17. Post op she had respiratory failure/ COPD exacerbation and was transferred from PACU to ICU. SHe was treated with NEB tx, steroids and diuretics. She improved weaning from needing face mask to keep sats up to NC. Patient uses oxygen via NC 18/06 at home usually at about 2 liters but with any exertion she increases to 5 liters. She continued to improve from pulmonology standpoint and on 09/28/17 was transferred off ICU to floor where she continued to be followed by Pulmonology. She is now weened down to 3 liters NC and cleared by Pulmonology to be sent to rehab. Dr. Posadas feels from surgical standpoint she meets criteria for discharge to [facility]. Pt Condition on Discharge: Good Discharge Disposition: Discharge to SNF Discharge Instructions DIET: Follow Instructions for: As Tolerated, No Restrictions Activities you can perform: Pelvic Rest Activities to avoid: Lifting/Bending, Strenuous Activity, Driving, Sexual Activity Follow up Referrals: Appointment for Follow Up - 1 Week @ Eron Walsh Oct 01, 2017 09:06
[2017-10-01 09:19] LABS: LYMPHOCYTES 13 % (9-44)
[2017-10-01 09:20] LABS: BANDS 1 % (0-6); CORRECTED NUCLEATED RBC 1 /100 WBC (0-0); MONOCYTES 4 % (0-8); MYELOCYTES 4 % (0-0); NEUTROPHIL # MANUAL DIFF 9.3 TH/MM3 (1.8-7.7); NUCLEATED RED BLOOD CELL 1 (0-0); POLYS (SEG NEUTROPHILS) 78 % (16-70)
[2017-10-01 09:21] LABS: ACANTHOCYTES OCC (NORMAL)
[2017-10-01 09:22] LABS: TARGET CELLS 1+ (NORMAL); TOXIC GRANULATION 1+ (NORMAL)
[2017-10-01] MEDS: LOSARTAN 50 MG TAB PO SCH ×2 (10:00)
[2017-10-01] MEDS: PANTOPRAZOLE SOD 20 MG DELAYED RELEASE TAB PO SCH ×2 (10:00)
[2017-10-01] MEDS: SODIUM CHLORIDE FLUSH BID IV FLUSH SCH ×2 (10:01)
[2017-10-01] MEDS: methylPREDNISolone SOD SUCC 40 MG/1 ML VIAL IV PUSH SCH ×2 (10:01)
== END 2017-10-01 15:27 | DRG 982 ==
LOC: HSDC 05:14 → HSDI 11:54 → N03A 18:16 → OBSVTOIN 18:16 → N06B 09-28 21:27
PROVIDERS: ADMIT Obstetrics & Gynecology Gynecologic Oncology; ATTEND Obstetrics & Gynecology Gynecologic Oncology
PROC: 0UT2FZZ Resection of Bilateral Ovaries, Via Natural or Artificial Opening With Percutaneous Endoscopic Assistance (ICD-10-PCS; 2017-09-24)
PROC: 0UT7FZZ Resection of Bilateral Fallopian Tubes, Via Natural or Artificial Opening With Percutaneous Endoscopic Assistance (ICD-10-PCS; 2017-09-24)
PROC: 0DNW4ZZ Release Peritoneum, Percutaneous Endoscopic Approach (ICD-10-PCS; 2017-09-24)
PROC: 8E0W4CZ Robotic Assisted Procedure of Trunk Region, Percutaneous Endoscopic Approach (ICD-10-PCS; 2017-09-24)
PROC: 5A09357 Assistance with Respiratory Ventilation, Less than 24 Consecutive Hours, Continuous Positive Airway Pressure (ICD-10-PCS; 2017-09-24)
PROC: 0UT9FZZ Resection of Uterus, Via Natural or Artificial Opening With Percutaneous Endoscopic Assistance (ICD-10-PCS; principal; 2017-09-24 07:30)
DX: J95.821 Acute postprocedural respiratory failure (principal); J90 Pleural effusion, not elsewhere classified; J44.1 Chronic obstructive pulmonary disease with (acute) exacerbation; Z99.81 Dependence on supplemental oxygen; Z68.41 Body mass index [BMI] 40.0-44.9, adult; C54.1 Malignant neoplasm of endometrium; D64.9 Anemia, unspecified; I10 Essential (primary) hypertension; E66.01 Morbid (severe) obesity due to excess calories; K66.0 Peritoneal adhesions (postprocedural) (postinfection); N95.0 Postmenopausal bleeding; R09.02 Hypoxemia; Z87.891 Personal history of nicotine dependence; Z88.8 Allergy status to other drugs, medicaments and biological substances
CPT/HCPCS: 36600; 71010; 80048; 80053; 81001; 82805; 82948; 83735; 83880; 84100; 85007; 85025; 85027; 86077; 86850; 86870; 86900; 86901; 86902; 86920; 86922; 88309; 88331; 93306; 94002; 94003; 94150; 94640; 94664; 94667; 94668; J0131; J0690; J1170; J1644; J1885; J1940; J2920; J2930; J3480; J7120; J7613; J7626